=== PATIENT | male | born 1965 | race African-American/Black ===

== ENCOUNTER 2020-04-04 07:47 | Observation (INO) | payer OTHER ==
--- OUTSIDE RECORDS SUMMARY | 2020-04-04 07:50 | XMS REPORT | Clinical Summary ---
:1965 Author Organization [facility] Address [address] [place] [address] Care Team Providers Name Role Phone MD Jacob Primary Care Provider Allergies Active Allergy Reactions Severity Noted Date Comments Rosuvastatin 05/15/2017 Muscle pain Atorvastatin 05/15/2017 Muscle pain Medications Medication Sig Dispensed Refills Start Date End Date Status CHOLECALCIFEROL, VITAMIN 6,000 Units. 0 Active D3, ORAL albuterol (PROAIR Inhale 2 puffs 18 g 11 2016 Active HFA,PROVENTIL every 6 (six) HFA,VENTOLIN HFA) 90 hours as needed mcg/actuation for wheezing or inhalerIndications: RAD shortness of (reactive airway breath. disease), mild intermittent, uncomplicated buPROPion (WELLBUTRIN) 75 TK 1 T PO BID 0 01/03/2017 Active MG tablet cyclobenzaprine TK 1 T PO TID 0 01/21/2017 Active (FLEXERIL) 5 mg tablet PRN FOR MUSCLE SPASMS sxgsuaxtyx-bntftdd-nrciha as needed. 1 03/03/2017 Active ne (FIORINAL) 50-325-40 mg per capsule levothyroxine (SYNTHROID, Take 1 tablet 90 tablet 3 04/03/2017 Active LEVOXYL) 150 mcg (150 mcg total) tabletIndications: Other by mouth daily. specified hypothyroidism hydroCHLOROthiazide Take 1 tablet 90 tablet 3 04/03/2017 Active (HYDRODIURIL) 25 MG (25 mg total) tabletIndications: by mouth once Essential hypertension daily. pantoprazole (PROTONIX) Take 1 tablet 90 tablet 3 04/03/2017 Active 40 MG EC (40 mg total) tabletIndications: by mouth daily. Gastroesophageal reflux disease without esophagitis amlodipine-benazepril Take 1 capsule 90 capsule 3 04/03/2017 Active (LOTREL 5-20) 5-20 mg per by mouth daily. capsuleIndications: Essential hypertension VYVANSE 20 mg capsule TK 1 C PO QD IN 0 04/25/2017 Active THE MORNING Active Problems Problem Noted Date Attention deficit 2016 Difficulty concentrating 2016 Generalized anxiety disorder 2016 THEA on CPAP 2016 Prediabetes 2016 Benign essential HTN 2016 Mixed hyperlipidemia 2016 Acquired hypothyroidism 2016 Gastroesophageal reflux disease without esophagitis RAD (reactive airway disease) 2016 Vitamin D deficiency 2016 Obesity (BMI 30-39.9) 2016 Ventral hernia without obstruction or gangrene 017 Immunizations Name Administration Dates Next Due FLUZONE QUAD 10/05/2015, 01/06/2013, 08/24/2011 Influenza Whole 09/14/2016 TD Preservative Free 06/20/2006 Tdap 12/05/2011, 02/18/2011 Family History Medical History Relation Name Comments Hypertension Maternal Grandfather Relation Name Status Comments Maternal Grandfather Social History Tobacco Use Types Packs/Day Years Used Date Never Smoker Alcohol Use Drinks/Week oz/Week Comments Yes 3 Cans of beer Sex Assigned at Date Recorded Not on file Job Start Date Occupation Industry Not on file Not on file Not on file Travel History Travel Start Travel End No recent travel history available. 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
--- OUTSIDE RECORDS SUMMARY | 2020-04-04 07:50 | XMS REPORT | Continuity of Care Document ---
:1965 Author Organization [facility] Care Team Providers Name Role Phone [facility] Unavailable Un available Problems Problem Status Onset Classification Date Comments Sourc e Date Reported R20.2 - PARESTHESIA Active 03/17/20 [facility] OF SKIN M54.12 - 19 [place] RAD M54.12 - Active 03/05/20 [facility] RADICULOPATHY, 19 [place] and [place] Osteoarthritis of Active 05/01/20 Problem 03/18/2020 Data M H Medical knee (disorder) 11 migrated Freddieu p, from [employer] [facility] [place] on 04/23/15. Hypothyroidism Active Problem 03/18/2020 [facility] edical (disorder) Group, [facility] [place] Simple obesity Active Problem 03/18/2020 M edical (disorder) Group, [facility] [place] Gastroesophageal Active Problem 03/18/2020 Medical reflux disease Group without esophagitis (disorder) Hypertensive Active Problem 03/18/2020 Med ical disorder, systemic G roup arterial (disorder) Patient encounter Active Problem 03/18/2020 M H Medical status (finding) Freddie up Injury of tendon of Active 07/24/2019 [facility] long head of right H ealth biceps, initial encounter Medications Medication Details Route Status Patient Ordering Order Source Instructions Provider Date levothyroxine 150 mcg 150 Active (0.15 mg) oral tablet microgram = 2019 Medical 1 tab, PO, Group Daily, for thyroid, # 90 tab, 0 Refill(s), Pharmacy: [facility] #[id number] Metronidazole 500 MG 500 mg = 1 Active Oral Tablet [Flagyl] tab, PO, 2019 Me dical Q8H, X 10 Group day, # 30 tab, 0 Refill(s), Pharmacy: [facility] #[id number] Ciprofloxacin 500 MG 500 mg = 1 Active Oral Tablet [Cipro] tab, PO, 2019 Med ical Q12H, X 10 Group day, # 20 tab, 0 Refill(s), Pharmacy: [facility] #[id number] Hydrochlorothiazide 25 mg = 1 Active 25 MG Oral Tablet tab, PO, 2020 Medic al Daily, for Group blood pressure, # 90 tab, 1 Refill(s), Pharmacy: [facility] #[id number] Amlodipine 5 MG / 1 cap, PO, Active Benazepril Daily, for 2020 Medical hydrochloride 20 MG blood Grou p Oral Capsule pressure, # 90 cap, 1 Refill(s), Pharmacy: [facility] #[id number] {21 See Active (Methylprednisolone 4 Instruction 2020 Medical MG Oral Tablet s, PO, Take Group [Medrol]) } Pack by mouth as [Medrol Dosepak] directed on label., # 1 Pack, 0 Refill(s), Pharmacy: [facility] #[id number] levothyroxine 150 mcg 150 Active (0.15 mg) oral tablet microgram = 2019 Medical 1 tab, PO, Group Daily, for thyroid, # 90 tab, 3 Refill(s), Pharmacy: [facility] #[id number] Escitalopram 10 MG 10 mg = 1 Active Oral Tablet [Lexapro] tab, PO, 2019 M edical Daily, # 30 Group tab, 0 Refill(s) levothyroxine 150 mcg TK 1 T PO D Active 06/30/ [facility] tablet FOR THYROID 2019 Health naproxen 500 mg oral 500 mg = 1 Active tablet tab, PO, 2019 Medical BID, # 60 Group tab, 1 Refill(s), Pharmacy: [facility] [id number] {21 See Active (Methylprednisolone 4 Instruction 2019 Medical MG Oral Tablet s, PO, Take Group [Medrol]) } Pack by mouth as [Medrol Dosepak] directed on label., # 1 Pack, 0 Refill(s), Pharmacy: [facility] [address] pantoprazole 40 mg 40 mg = 1 Active oral enteric coated tab, PO, 2019 Med ical tablet Daily, # 90 Group tab, 3 Refill(s), Pharmacy: [facility] [id number] levothyroxine 150 mcg 150 Active (0.15 mg) oral tablet microgram = 2019 Medical 1 tab, PO, Group Daily, for thyroid, # 90 tab, 1 Refill(s), Pharmacy: [facility] [address] Hydrochlorothiazide 25 mg = 1 Active 25 MG Oral Tablet tab, PO, 2019 Medic al Daily, for Group blood pressure, # 90 tab, 1 Refill(s), Pharmacy: [facility] [address]1560 gabapentin 300 MG 300 mg = 1 Active Oral Capsule cap, PO, 2019 Medical BID, # 60 Group cap, 0 Refill(s), Pharmacy: [facility] [address] Amlodipine 5 MG / 1 cap, PO, Active Benazepril Daily, for 2019 Medical hydrochloride 20 MG blood Grou p Oral Capsule pressure, # 90 cap, 1 Refill(s), Pharmacy: [facility] [address] hydroCHLOROthiazide TK 1 T PO D Active 05/29/ [facility] 25 mg tablet FOR BLOOD 2019 Health PRESSURE amlodipine-benazepril TK ONE C PO Active 05/29/ [facility] 5-20 mg per capsule D FOR BP 2019 [facility] pantoprazole 40 mg 40 mg = 1 Active oral enteric coated tab, PO, 2019 Med ical tablet Daily, # 90 Group tab, 0 Refill(s), Pharmacy: [facility] [address] cyclobenzaprine 10 mg 10 mg = 1 Active oral tablet tab, PO, 2019 Medical Bedtime, Group PRN for spasms, do not drive or operate heavy machinery while taking, X 30 day, # 30 tab, 0 Refill(s), Pharmacy: [facility] [address] levothyroxine 150 mcg 150 Active (0.15 mg) oral tablet microgram = 2019 Medical 1 tab, PO, Group Daily, # 90 tab, 1 Refill(s), Pharmacy: [facility] [id number] Hydrochlorothiazide 25 mg = 1 Active 25 MG Oral Tablet tab, PO, 2019 Medic al Daily, # 90 Group tab, 1 Refill(s), Pharmacy: [facility] [address]753 Amlodipine 5 MG / 1 cap, PO, Active Benazepril Daily, # 90 2019 Medical hydrochloride 20 MG cap, 1 Grou p Oral Capsule Refill(s), Pharmacy: [facility] [address]191 0.5 ML Varicella 0.5 mL, IM, Active zoster virus ONCE, 2019 Medical glycoprotein E, repeat dose Grou p recombinant 0.1 MG/ML in 2 to 6 Injection [Shingrix] months, # 1 mL, 1 Refill(s), Pharmacy: [facility] [address] Betamethasone 0.5 1 appl, Active MG/ML / Clotrimazole TOP, BID, 2019 M edical 10 MG/ML Topical PRN Apply Group Cream to affected areas, X 14 day, # 45 gm, 1 Refill(s), Pharmacy: [facility] [address] levothyroxine 150 mcg 150 No (0.15 mg) oral tablet microgram = Longer 2018 Medical 1 tab, PO, Active Group Daily, # 90 tab, 1 Refill(s), Pharmacy: [facility] [address] levothyroxine 150 mcg 150 No (0.15 mg) oral tablet microgram = Longer 2017 Medical 1 tab, PO, Active Group Daily, # 30 tab, 0 Refill(s) Amlodipine 5 MG / 1 cap, PO, No Benazepril Daily, # 30 Longer 2018 Medical hydrochloride 20 MG cap, 0 Active Grou p Oral Capsule Refill(s) Hydrochlorothiazide 25 mg = 1 No 25 MG Oral Tablet tab, PO, Longer 2018 Medic al Daily, # 30 Active Group tab, 0 Refill(s) pantoprazole 40 mg 40 mg = 1 No oral enteric coated tab, PO, Longer 2018 Med ical tablet Daily, # 30 Active Group tab, 0 Refill(s) Amphetamine aspartate 10 mg = 1 No 2.5 MG / Amphetamine tab, PO, Longer 2018 Me dical Sulfate 2.5 MG / QAM, # 60 Active Group Dextroamphetamine tab, 0 saccharate 2.5 MG / Refill(s) Dextroamphetamine Sulfate 2.5 MG Oral Tablet [Adderall] Vitamin D3 0 Refill(s) Active 2017 Medical Group pantoprazole Protonix 40 Active 05/10/ [facility] (PROTONIX) 40 mg EC mg 2016 tablet tablet,julien yed release Take 1 tablet every day by oral route. dextroamphetamine-amp Adderall 10 Active [facility] hetamine (ADDERALL) mg tablet He alth 10 mg tablet Take 1 tablet every day by oral route. Allergies, Adverse Reactions, Alerts Substance Category Reaction Severity Reaction Status Date Comments S ource type Reported No Known Assertion Drug Medication allergy Medic al Allergies Group Immunizations Immunization Date Given Site Status Last Comments Source Updated influenza virus 10/25/2018 completed [facility] vaccine, live, Group , trivalent [facility] [place] Results No Data Provided for This Section Pathology Reports No Data Provided for This Section Diagnostic Reports Report Value Date Source Spine cervical 2 or 3 CERVICAL SPINE, 3 VIEWS 03/05/2019 [facility] [place] view DX HISTORY: ; - m54.12 acute cervical radiculopath y; COMPARISON: None available. FINDINGS: Frontal, lateral, and odontoid views submitted. There is very mild chronic d epression of the superior endplate of the C5 vertebral body anteriorly which may be degenerative or may be related to old healed fracture. A small 4 mm chronic osseous fragment at the anterior superior corner of the C5 vertebral body may represent limbus vertebra or chronic nonunion fracture fragment. Vertebral body heights are o therwise maintained. The disc space heights are grossly preserved. There is no spondylolisthesis. There is no prevertebral soft tissue swelling. IMPRESSION: 1. Chronic findings at C5 as described with may be congenital, degenerative, and/or posttraumatic. 2. Otherwise negative. SL: [id number] Consultation Notes No Data Provided for This Section Discharge Summaries No Data Provided for This Section History and Physicals No Data Provided for This Section Vital Signs Vital Sign Value Date Comments Source Systolic (mm Hg) 122 01/07/2020 Medical Group Diastolic (mm Hg) 77 01/07/2020 Medical Group Heart Rate 76 01/07/2020 Medical Grou p Temperature Oral (F) 98.0 F 01/07/2020 Medi jadon Group Height 185.42 cm 01/07/2020 Medical Grou p Weight 124.773 01/07/2020 Medical Grou p BMI Calculated 36.29 01/07/2020 Medical Gr oup Systolic (mm Hg) 141 12/01/2019 Medical Group Diastolic (mm Hg) 90 12/01/2019 Medical Group Heart Rate 65 12/01/2019 Medical Grou p Temperature Oral (F) 98.7 F 12/01/2019 Medi jadon Group Height 184.15 cm 12/01/2019 Medical Grou p Weight 125.938 12/01/2019 Medical Grou p BMI Calculated 37.14 12/01/2019 Medical Gr oup Systolic (mm Hg) 130 08/12/2019 Medical Group Diastolic (mm Hg) 85 08/12/2019 Medical Group Heart Rate 57 08/12/2019 Medical Grou p Height 185.42 cm 08/12/2019 Medical Grou p Weight 119.773 08/12/2019 Medical Grou p BMI Calculated 34.84 08/12/2019 Medical Gr oup Systolic (mm Hg) 130 07/15/2019 [facility] Health Diastolic (mm Hg) 72 07/15/2019 [facility] Healt h Heart Rate 68 07/15/2019 [facility] Health Temperature Oral (F) 37.44 Jeri 07/15/2019 [facility] He alth Height 185.4 cm 07/15/2019 [facility] Health Weight 102.785 07/15/2019 [facility] Health BMI Calculated 35.3 05/29/2019 Medical Gr oup Weight 121.364 05/29/2019 Medical Grou p Height 185.42 cm 05/29/2019 Medical Grou p Heart Rate 53 05/29/2019 Medical Grou p Systolic (mm Hg) 138 05/29/2019 Medical Group Diastolic (mm Hg) 88 05/29/2019 Medical Group Temperature Oral (F) 98.0 F 05/29/2019 Medi jadon Group BMI Calculated 35.04 03/05/2019 Medical Gr oup Weight 120.455 03/05/2019 Medical Grou p Height 185.42 cm 03/05/2019 Medical Grou p Temperature Oral (F) 98.2 F 03/05/2019 Medi jadon Group Heart Rate 70 03/05/2019 Medical Grou p Systolic (mm Hg) 129 03/05/2019 Medical Group Diastolic (mm Hg) 88 03/05/2019 Medical Group BMI Calculated 35.64 02/11/2019 Medical Gr oup Systolic (mm Hg) 134 02/11/2019 Medical Group Diastolic (mm Hg) 84 02/11/2019 Medical Group Heart Rate 65 02/11/2019 Medical Grou p Height 185.42 cm 02/11/2019 Medical Grou p Weight 122.528 02/11/2019 Medical Grou p BMI Calculated 35.74 02/09/2019 Medical Gr oup Weight 122.869 02/09/2019 Medical Grou p Height 185.42 cm 02/09/2019 Medical Grou p Systolic (mm Hg) 133 02/09/2019 Medical Group Diastolic (mm Hg) 88 02/09/2019 Medical Group Temperature Oral (F) 98.2 F 02/09/2019 Medi jadon Group Respitory Rate 18 02/09/2019 Medical Gr oup Heart Rate 66 02/09/2019 Medical Grou p BMI Calculated 34.24 10/27/2018 Medical Gr oup Heart Rate 62 10/27/2018 Medical Grou p Weight 117.727 10/27/2018 Medical Grou p Height 185.42 cm 10/27/2018 Medical Grou p Systolic (mm Hg) 129 10/27/2018 Medical Group Diastolic (mm Hg) 77 10/27/2018 Medical Group Encounters Location Location Encounter Encounter Reason Attending ADM DC Stat us Source Details Type Number For Provider Date Date Visit Outpatient [id number] EDWARD 10/27 [facility] Outpatient [id number] Edward 10/27 10/28 M H Primary 0 [facility] Medic al [facility] Outpatient [id number] ADDISON HAAS 01/12 Act [facility] Ambulatory [id number] Addison Haas 01/12 01/12 Primary Pre-Reg 2 Jr Medical Care [facility] Outpatient [id number] EDWARD 01/28 Active [facility] 1 [facility] [place] [facility] [id number] AKUVI ELHOR 02/09 [facility] 3 [facility] Outpatient [id number] Akuvi Elhor 02/09 02/10 Primary 3 [facility] Outpatient [id number] EDWARD 02/11 Active [facility] 4 [facility] Outpatient [id number] Akuvi Elhor 02/11 02/12 MH Primary 4 Medical Care Group [facility] Outpatient [id number] Akuvi Elhor 03/04 [facility] 6 [facility] Ambulatory [id number] Akuvi Elhor 03/04 03/04 MH Primary Pre-Reg 6 Medical Care Group [facility] Outpatient [id number] Akuvi Elhor 03/05 [facility] Outpatient [id number] Akuvi Elhor 03/05 03/06 MH Primary 7 Medical Care Group [facility] Outpt Diag [id number] Akuvi Elhor 03/05 03/06 MH [facility] Outpatient Services 0 [facility] Between [id number] 03/16 03/17 MH Primary Visit Medical Care Group [facility] Between [id number] 04/23 04/24 MH Primary Visit Medical Care Group [facility] Phone [id number] 04/23 04/25 MH Primary Message Medical Care [facility] Between [id number] 05/01 05/02 MH Primary Visit Medical Care Group [facility] Outpatient [id number] Addison Haas 05/29 [facility] 8 [place] [facility] Outpatient [id number] Akuvi Elhor 05/29 05/30 MH Primary 8 Medical Care Group [facility] Health Office [id number] Blair 07/15 07/15 [facility] B Orthopaedic Visit [facility] Orders Only [id number] No Doctor 07/17 [facility] Unass Health [facility] Health Telephone [id number] Blair 07/24 [facility] Orthopaedic Charles GARC[facility] Outpatient [id number] Edward 08/12 Active [facility] 5 [facility] Outpatient [id number] Edward 08/12 08/13 M H Primary 5 Nicklas II /2018 Medic al Care Group [place] [facility] Between [id number] 08/13 08/14 MH Primary Visit Medical Care Upper [facility] Outpatient [id number] Akuvi Elhor 12/01 [facility] [place] [facility] Outpatient [id number] Akuvi Elhor 12/01 12/02 [facility] [id number] 12/02 12/03 [facility] [id number] 12/08 12/09 [facility] [id number] Akuvi Elhor 01/07 [facility] [id number] Akuvi Elhor 01/07 01/08 [facility] [id number] 01/07 01/08 MH Primary Visit Medical Care [facility] Outpatient [id number] Ed02/09 Active [facility] 9 [facility] Outpatient [id number] Addison Haas 03/15 [facility] [id number] Addison Haas 03/15 03/15 MH Primary Pre-Reg 2 Medical Care [facility] Phone [id number] 03/15 03/17 MH Primary Message Medical Care [facility] Between [id number] 03/15 03/16 MH Primary Visit Medical Care Upper [facility] MG Between [id number] 03/15 03/16 MH Primary Visit Medical Care [facility] Outpatient [id number] Ed03/16 Active [facility] 3 [facility] Outpatient [id number] Ed03/16 M H Primary 3 Nicklas /2019 Medic al Care Upper Group [facility] Procedures Procedure Code Date Perfomer Comments Source WORKERS [id number] 07/17/2019 Doctor [facility] Health COMPENSATION Unassigned Colonoscopy<sup>1< [id number] 11/25/2016 done at [facility] ical /sup> Jessica Joseph, JOVANI Sharpe and Azam was normal Arthroscopy of [id number] 11/25/1987 Medical knee Group History of [id number] 11/25/1987 Medical shoulder surgery Group Appendectomy [id number] Medical Group, JOVANI Nascimento Entire nasal sinus [id number] Med ical Group, JOVANI Nascimento Assessment and Plan No Data Provided for This Section Plan of Care Plan of Care Date Source INFLUENZA VACCINE (#1) 2019 [facility] MR SHOULDER RIGHT WO CONTRAST 07/24/2019 [facility] IMAGING Routine Injury of tendon of long head of right biceps, initial encou nter Expected: 07/24/2019, Expires: 07/24/2020 COLONOSCOPY 2016 [facility] DTaP,Tdap,and Td Vaccines (1 - 1985 [facility] Tdap) Social History Social History Date Source Social History TypeResponse 03/16/2020 Medical G roup Alcohol Never Substance Abuse Use: None. Smoking Status Never smoker; Exposure to Tobacco Smoke None; Cigarette Smoking Last 365 Days No; Reg Smoking Cessation Counseling No entered on: 03/16/20 Tobacco UseTypesPacks/DayYears UsedDate 07/30/2019 [facility] Never Assessed Sex Assigned at BirthDate Recorded Not on file Job Start DateOccupationIndustry Not on file Not on file Not on file Travel HistoryTravel StartTravel End No recent travel history available. documented as of this encounter Social History TypeResponse 03/05/2019 JOVANI [email or web address] Smoking Status Never smoker; Exposure to Tobacco Smoke None; Cigarette Smoking Last 365 Days No; Reg Smoking Cessation Counseling No entered on: 03/05/19 Family History No Data Provided for This Section Advance Directives No Data Provided for This Section Functional Status No Data Provided for This Section
--- OUTSIDE RECORDS SUMMARY | 2020-04-04 07:51 | XMS REPORT | Summary of Care ---
:1965 Author Organization [facility] Primary Care [facility] Address [address] [place] [address], [address] [place] [address]- Encounter HQ Encntr_alias(FIN) [id number] Date(s): 03/16/19 - 03/17/19 [facility] Care [facility] [address] [facility] [address] [place], [place] [address]- [phone] Vital Signs No data available for this section Problem List Condition Effective Dates Status Health Status Informant Other specified Active hypothyroidism(Confirmed) Osteoarthritis of knee1 05/01/11 Active Simple obesity(Confirmed) Active 1Data migrated from [employer] on 04/23/15. Allergies, Adverse Reactions, Alerts Substance Reaction Severity Status NKDA Active Medications No data available for this section Results No data available for this section Immunizations Given and Recorded Vaccine Date Status Refusal Reason influenza virus vaccine, live, trivalent 10/25/18 Recorde d Procedures Procedure Date Related Diagnosis Body Site Status Colonoscopy2016 Completed Appendectomy Completed Entire nasal sinus Completed 1done at [facility] and was normal Social History Social History Type Response Smoking Status Never smoker; Exposure to To bacco Smoke None; Cigarette Smoking Last 365 Days No; Reg Smoking Cessation Counseling No entered on: 03/05/19 Assessment and Plan No data available for this section
--- OUTSIDE RECORDS SUMMARY | 2020-04-04 07:51 | XMS REPORT | Summary of Care ---
:1965 Author Organization [facility] Primary Care [facility] Address [address] [place] [address]- Encounter HQ Encntr_óscar(FIN) [id number] Date(s): 03/15/20 - 03/16/20 [facility] Primary Care [facility] [address] [place] [address]- [phone] Vital Signs No data available for this section Problem List Condition Effective Dates Status Health Status Informant GERD without esophagitis(Confirmed) Active Hypertension(Confirmed) Active Other specified Active hypothyroidism(Confirmed) Osteoarthritis of knee1 05/01/11 Active Depression screening(Confirmed) Active Simple obesity(Confirmed) Active 1Data migrated from [employer] on 04/23/15. Allergies, Adverse Reactions, Alerts No Known Medication Allergies Medications levothyroxine 150 mcg (0.15 mg) oral tablet 150 microgram = 1 tab, PO, Daily, for thyroid, # 90 tab, 0 Refill(s), Pharmacy: [id number] Start Date: 03/15/20 Stop Date: 06/13/20 Status: Ordered Results No data available for this section Immunizations Given and Recorded Vaccine Date Status Refusal Reason influenza virus vaccine, live, trivalent 10/25/18 Recorde d Procedures Procedure Date Related Diagnosis Body Site Status 2016 Completed Arthroscopy of knee 11/25/87 Complete d History of shoulder surgery 11/25/87 Completed Appendectomy Completed Entire nasal sinus Completed 1done at [facility] and was normal Social History Social History Type Response Alcohol Never Substance Abuse Use: None. Smoking Status Never smoker; Exposure to To bacco Smoke None; Cigarette Smoking Last 365 Days No; Reg Smoking Cessation Counseling No entered on: 03/16/20 Assessment and Plan No data available for this section
--- OUTSIDE RECORDS SUMMARY | 2020-04-04 07:51 | XMS REPORT | Summary of Care ---
:1965 Author Organization [facility] Primary Care [facility] Address [address], [address] [place] [address]- Encounter HQ Pavelntr_óscar(FIN) [id number] Date(s): 03/04/19 - 03/04/19 [facility] Care [facility] [address] [place] [address]- [phone] Attending Physician: Antonio Dumont MSN, RN, BACK TACKER-C Vital Signs No data available for this section Problem List Condition Effective Dates Status Health Status Informant Other specified Active hypothyroidism(Confirmed) Osteoarthritis of knee1 05/01/11 Active Simple obesity(Confirmed) Active 1Data migrated from [employer] on 04/23/15. Allergies, Adverse Reactions, Alerts Substance Reaction Severity Status NKDA Active Medications No data available for this section Results No data available for this section Immunizations Given and Recorded Vaccine Date Status Refusal Reason influenza virus vaccine, live, trivalent 10/25/18 Recorde d Procedures Procedure Date Related Diagnosis Body Site Status Colonoscopy2016 Completed Appendectomy Completed Entire nasal sinus Completed 1done at [facility] and was normal Social History Social History Type Response Smoking Status Never smoker; Exposure to To bacco Smoke None; Cigarette Smoking Last 365 Days No; Reg Smoking Cessation Counseling No entered on: 03/05/19 Assessment and Plan No data available for this section
--- OUTSIDE RECORDS SUMMARY | 2020-04-04 07:51 | XMS REPORT | Summary of Care ---
:1965 Author Organization [facility] Primary Care [facility] Address [address] [place] [address], [address] [address]- Encounter HQ Encntr_alias(FIN) [id number] Date(s): 01/12/19 - 01/12/19 [facility] [address], [address] [address] [phone] Attending Physician: Matthew Sher MD Vital Signs No data available for this section Problem List Condition Effective Dates Status Health Status Informant Other specified Active hypothyroidism(Confirmed) Osteoarthritis of knee1 05/01/11 Active Simple obesity(Confirmed) Active 1Data migrated from [employer] on 04/23/15. Allergies, Adverse Reactions, Alerts Substance Reaction Severity Status NKDA Active Medications No data available for this section Results No data available for this section Immunizations No data available for this section Procedures Procedure Date Related Diagnosis Body Site Status Appendectomy Completed Entire nasal sinus Completed Social History Social History Type Response Smoking Status Never smoker; Exposure to To bacco Smoke None; Cigarette Smoking Last 365 Days No; Reg Smoking Cessation Counseling No entered on: 10/27/18 Assessment and Plan No data available for this section
--- OUTSIDE RECORDS SUMMARY | 2020-04-04 07:51 | XMS REPORT | Summary of Care ---
:1965 Author Organization [facility] Primary Care [facility] Address [address] [place] [address]- Encounter HQ Encntr_alias(FIN) [id number] Date(s): 12/08/19 - 12/09/19 [facility] Primary Care [facility] [address] [place], [place] [address]- [phone] Vital Signs No data available for this section Problem List Condition Effective Dates Status Health Status Informant GERD without esophagitis(Confirmed) Active Hypertension(Confirmed) Active Other specified Active hypothyroidism(Confirmed) Osteoarthritis of knee1 05/01/11 Active Simple obesity(Confirmed) Active 1Data migrated from [email or web address] on 04/23/15. Allergies, Adverse Reactions, Alerts No Known Medication Allergies Medications No data available for this section Results No data available for this section Immunizations Given and Recorded Vaccine Date Status Refusal Reason influenza virus vaccine, live, trivalent 10/25/18 Recorde d Procedures Procedure Date Related Diagnosis Body Site Status Colonoscopy2016 Completed Appendectomy Completed Entire nasal sinus Completed 1done at [facility] and was normal Social History Social History Type Response Smoking Status Never smoker; Exposure to To bacco Smoke None; Cigarette Smoking Last 365 Days No; Reg Smoking Cessation Counseling No entered on: 12/01/19 Assessment and Plan No data available for this section
--- OUTSIDE RECORDS SUMMARY | 2020-04-04 07:51 | XMS REPORT | Summary of Care ---
:1965 Author Organization [facility] Primary Care [facility] Address [address] [place] [address], [address] [place] [address]- Encounter HQ Encntr_alias(FIN) [id number] Date(s): 04/23/19 - 04/24/19 [facility] Primary Care [facility] [address] [place], [place] [address]- [phone] Vital Signs No data available for this section Problem List Condition Effective Dates Status Health Status Informant Other specified Active hypothyroidism(Confirmed) Osteoarthritis of knee1 05/01/11 Active Simple obesity(Confirmed) Active 1Data migrated from [employer] on 04/23/15. Allergies, Adverse Reactions, Alerts No Known Medication Allergies Medications pantoprazole 40 mg oral enteric coated tablet 40 mg = 1 tab, PO, Daily, # 90 tab, 0 Refill(s), Pharmacy: [id number] Start Date: 04/23/19 Status: Ordered Results No data available for [...]
--- OUTSIDE RECORDS SUMMARY | 2020-04-04 07:51 | XMS REPORT | Summary of Care ---
:1965 Author Organization [facility] Primary Care [facility] Address [address] [place] [address]- Encounter HQ Encntr_óscar(FIN) [id number] Date(s): 03/16/20 - 03/16/20 [facility] Primary Care [facility] [address] [place] [address]- [phone] Discharge Disposition: Home or Self Care Attending Physician: Victor M Lin MD Vital Signs No data available for this section Problem List Condition Effective Dates Status Health Status Informant GERD without esophagitis(Confirmed) Active Hypertension(Confirmed) Active Other specified Active hypothyroidism(Confirmed) Osteoarthritis of knee1 05/01/11 Active Depression screening(Confirmed) Active Simple obesity(Confirmed) Active 1Data migrated from [employer] on 04/23/15. Allergies, Adverse Reactions, Alerts No Known Medication Allergies Medications No Known Medications Results No data available for this section Immunizations Given and Recorded Vaccine Date Status Refusal Reason influenza virus vaccine, live, trivalent 10/25/18 Recorde d Procedures Procedure Date Related Diagnosis Body Site Status Colonoscopy2016 Completed Arthroscopy of knee 11/25/87 Complete d History of shoulder surgery 11/25/87 Completed Appendectomy Completed Entire nasal sinus Completed 1done at [facility] and was normal Social History Social History Type Response Alcohol Never Substance Abuse Use: None. Smoking Status Never smoker; Exposure to To bacco Smoke None; Cigarette Smoking Last 365 Days No; Reg Smoking Cessation Counseling No entered on: 03/16/20 Assessment and Plan No data available for this section
--- OUTSIDE RECORDS SUMMARY | 2020-04-04 07:51 | XMS REPORT | Summary of Care ---
:1965 Author Organization [facility] Primary Care [facility] Address [address], [address] [place] [address]- Encounter HQ Encntr_alias(FIN) [id number] Date(s): 04/23/19 - 04/24/19 [facility] Care [facility] [address] [place], [place] [address]- [phone] Vital Signs No data available for this section Problem List Condition Effective Dates Status Health Status Informant Other specified Active hypothyroidism(Confirmed) Osteoarthritis of knee1 05/01/11 Active Simple obesity(Confirmed) Active 1Data migrated from [employer] [facility] on 04/23/15. Allergies, Adverse Reactions, Alerts No Known Medication Allergies Medications No data available for this section Results No data available for this section Immunizations Given and Recorded Vaccine Date Status Refusal Reason influenza virus vaccine, live, trivalent 10/25/18 Recorde d Procedures Procedure Date Related Diagnosis Body Site Status Colonoscopy2016 Completed Appendectomy Completed Entire nasal sinus Completed 1done at [facility] and was normal Social History Social History Type Response Smoking Status Never smoker; Exposure to To bacco Smoke None; Cigarette Smoking Last 365 Days No; Reg Smoking Cessation Counseling No entered on: 03/05/19 Assessment and Plan No data available for this section
--- OUTSIDE RECORDS SUMMARY | 2020-04-04 07:51 | XMS REPORT | Summary of Care ---
:1965 Author Organization [facility] Primary Care [place] Address [address] [place] [address]- Encounter HQ Monica_óscar(ZAC) [id number] Date(s): 08/12/19 - 08/12/19 [facility] Primary Care [place] [address] [place] [address]- [phone] Discharge Disposition: Home or Self Care Attending Physician: Victor M Lin MD Vital Signs Most recent to oldest [Reference Range]: 1 Height 185.42 cm (08/12/19 1:08 PM) Blood Pressure [90-140/60-90 mmHg] 130/85 mmHg (08/12/19 1:08 PM) Peripheral Pulse Rate [60-100 bpm] 57 bpm *LOW* (08/12/19 1:08 PM) Weight 119.773 kg (08/12/19 1:08 PM) Body Mass Index 34.84 m2 (08/12/19 1:08 PM) Problem List Condition Effective Dates Status Health Status Informant GERD without esophagitis(Confirmed) Active Hypertension(Confirmed) Active Other specified Active hypothyroidism(Confirmed) Osteoarthritis of knee1 05/01/11 Active Simple obesity(Confirmed) Active 1Data migrated from [employer] on 04/23/15. Allergies, Adverse Reactions, Alerts No Known Medication Allergies Medications levothyroxine 150 mcg (0.15 mg) oral tablet 150 microgram = 1 tab, PO, Daily, for thyroid, # 90 tab, 3 Refill(s), Pharmacy: [id number] Start Date: 08/13/19 Status: OrderedLexapro 10 mg oral tablet 10 mg = 1 tab, PO, Daily, # 30 tab, 0 Refill(s) Start Date: 08/12/19 Status: Ordered Results No data available for this section Immunizations Given and Recorded Vaccine Date Status Refusal Reason influenza virus vaccine, live, trivalent 10/25/18 Recorde d Procedures Procedure Date Related Diagnosis Body Site Status Colonoscopy2016 Completed Appendectomy Completed Entire nasal sinus Completed 1done at [facility] and was normal Social History Social History Type Response Smoking Status Never smoker; Exposure to To bacco Smoke None; Cigarette Smoking Last 365 Days No; Reg Smoking Cessation Counseling No entered on: 08/12/19 Assessment and Plan No data available for this section
--- OUTSIDE RECORDS SUMMARY | 2020-04-04 07:51 | XMS REPORT | Summary of Care ---
:1965 Author Organization [facility] Primary Care [facility] Address [address] [place] [address]- Encounter HQ Monica_óscar(FIN) [id number] Date(s): 05/29/19 - 05/29/19 [facility] Primary Care [facility] [address] [place], [place] [address]- [phone] Discharge Disposition: Home or Self Care Attending Physician: Antonio Dumont MSN, RN, COMMUNITY SERVICE TECHNICIAN-C Vital Signs Most recent to oldest [Reference Range]: 1 Height 185.42 cm (05/29/19 9:13 AM) Temperature Oral [96.4-99.1 DegF] 98.0 DegF (05/29/19 9:13 AM) Blood Pressure [90-140/60-90 mmHg] 138/88 mmHg (05/29/19 9:13 AM) Peripheral Pulse Rate [60-100 bpm] 53 bpm *LOW* (05/29/19 9:13 AM) Weight 121.364 kg (05/29/19 9:13 AM) Body Mass Index 35.3 m2 (05/29/19 9:13 AM) Problem List Condition Effective Dates Status Health Status Informant GERD without esophagitis(Confirmed) Active Hypertension(Confirmed) Active Other specified Active hypothyroidism(Confirmed) Osteoarthritis of knee1 05/01/11 Active Simple obesity(Confirmed) Active 1Data migrated from [facility] on 04/23/15. Allergies, Adverse Reactions, Alerts No Known Medication Allergies Medications amLODIPine-benazepril 5 mg-20 mg oral capsule 1 cap, PO, Daily, for blood pressure, # 90 cap, 1 Refill(s), Pharmacy: [facility] [id number] Start Date: 05/29/19 Status: Orderedgabapentin 300 mg oral capsule 300 mg = 1 cap, PO, BID, # 60 cap, 0 Refill(s), Pharmacy: [address] [id number] Start Date: 05/29/19 Stop Date: 06/28/19 Status: Orderedhydrochlorothiazide 25 mg oral tablet 25 mg = 1 tab, PO, Daily, for blood pressure, # 90 tab, 1 Refill(s), Pharmacy: [address] [id number] Start Date: 05/29/19 Status: Orderedlevothyroxine 150 mcg (0.15 mg) oral tablet 150 microgram = 1 tab, PO, Daily, for thyroid, # 90 tab, 1 Refill(s), [facility]acy: [facility] Start Date: 05/29/19 Status: OrderedMedrol Dosepak 4 mg oral tablet See Instructions, PO, Take by mouth as directed on label., # 1 Pack, 0 Refill(s), Pharmacy: [facility] [id number] Start Date: 05/29/19 Stop Date: 06/04/19 Status: Orderednaproxen 500 mg oral tablet 500 mg = 1 tab, PO, BID, # 60 tab, 1 Refill(s), Pharmacy: [facility] [id number] Start Date: 05/29/19 Stop Date: 06/30/19 Status: Orderedpantoprazole 40 mg oral enteric coated tablet 40 mg = 1 tab, PO, Daily, # 90 tab, 3 Refill(s), Pharmacy: [facility] [id number] Start Date: 05/29/19 Status: Ordered Results No data available for this section Immunizations Given and Recorded Vaccine Date Status Refusal Reason influenza virus vaccine, live, trivalent 10/25/18 Recorde d Procedures Procedure Date Related Diagnosis Body Site Status Colonoscopy2016 Completed Appendectomy Completed Entire nasal sinus Completed 1done at [facility] and was normal Social History Social History Type Response Smoking Status Never smoker; Exposure to To bacco Smoke None; Cigarette Smoking Last 365 Days No; Reg Smoking Cessation Counseling No entered on: 05/29/19 Assessment and Plan No data available for this section
--- OUTSIDE RECORDS SUMMARY | 2020-04-04 07:51 | XMS REPORT | Summary of Care ---
:1965 Author Organization [facility] Primary Care [facility] Address [address] [place] [address], [address] [place] [address]- Encounter HQ Encntr_alias(FIN) [id number] Date(s): 05/01/19 - 05/02/19 [facility] Care [facility] [address] [place], [place] [address]- [phone] Vital Signs No data available for this section Problem List Condition Effective Dates Status Health Status Informant Other specified Active hypothyroidism(Confirmed) Osteoarthritis of knee1 05/01/11 Active Simple obesity(Confirmed) Active 1Data migrated from [facility] on 04/23/15. Allergies, Adverse Reactions, Alerts No Known Medication Allergies Medications No data available for this section Results No data available for this section Immunizations Given and Recorded Vaccine Date Status Refusal Reason influenza virus vaccine, live, trivalent 10/25/18 Recorde d Procedures Procedure Date Related Diagnosis Body Site Status Colonoscopy2016 Completed Appendectomy Completed Entire nasal sinus Completed 1done at [facility] and was normal Social History Social History Type Response Smoking Status Never smoker; Exposure to To bacco Smoke None; Cigarette Smoking Last 365 Days No; Reg Smoking Cessation Counseling No entered on: 03/05/19 Assessment and Plan No data available for this section
--- OUTSIDE RECORDS SUMMARY | 2020-04-04 07:51 | XMS REPORT | Summary of Care ---
:1965 Author Organization [facility] Primary Care [place] Address [address] [place] [address]- Encounter HQ Encntr_alijefferson(FIN) [id number] Date(s): 01/07/20 - 01/08/20 [facility] Care [place] [address] [place] [address] [phone] Vital Signs No data available for this section Problem List Condition Effective Dates Status Health Status Informant GERD without esophagitis(Confirmed) Active Hypertension(Confirmed) Active Other specified Active hypothyroidism(Confirmed) Osteoarthritis of knee1 05/01/11 Active Simple obesity(Confirmed) Active 1Data migrated from [employer] on 04/23/15. Allergies, Adverse Reactions, Alerts No Known Medication Allergies Medications No data available for this section Results No data available for this section Immunizations Given and Recorded Vaccine Date Status Refusal Reason influenza virus vaccine, live, trivalent 10/25/18 Recorde d Procedures Procedure Date Related Diagnosis Body Site Status Colonoscopy2016 Completed Appendectomy Completed Entire nasal sinus Completed 1done at [facility] and was normal Social History Social History Type Response Smoking Status Never smoker; Exposure to To bacco Smoke None; Cigarette Smoking Last 365 Days No; Reg Smoking Cessation Counseling No entered on: 01/07/20 Assessment and Plan No data available for this section
--- OUTSIDE RECORDS SUMMARY | 2020-04-04 07:51 | XMS REPORT | Summary of Care ---
:1965 Author Organization [facility] Primary Care [facility] Address [address] [place] [address]- Encounter HQ Encntr_alias(FIN) [id number] Date(s): 08/13/19 - 08/14/19 [facility] Primary Care [facility] [address] [place] [address] [phone] Vital Signs No data available for this section Problem List Condition Effective Dates Status Health Status Informant GERD without esophagitis(Confirmed) Active Hypertension(Confirmed) Active Other specified Active hypothyroidism(Confirmed) Osteoarthritis of knee1 05/01/11 Active Simple obesity(Confirmed) Active 1Data migrated from [employer] on 04/23/15. Allergies, Adverse Reactions, Alerts No Known Medication Allergies Medications No data available for this section Results No data available for this section Immunizations Given and Recorded Vaccine Date Status Refusal Reason influenza virus vaccine, live, trivalent 10/25/18 Recorde d Procedures Procedure Date Related Diagnosis Body Site Status Colonoscopy2016 Completed Appendectomy Completed Entire nasal sinus Completed 1done at [facility] and was normal Social History Social History Type Response Smoking Status Never smoker; Exposure to To bacco Smoke None; Cigarette Smoking Last 365 Days No; Reg Smoking Cessation Counseling No entered on: 08/12/19 Assessment and Plan No data available for this section
--- OUTSIDE RECORDS SUMMARY | 2020-04-04 07:51 | XMS REPORT | Summary of Care ---
:[address] [facility] Primary Care [place] Address [address] [place] [address]- Encounter HQ Monica_óscar(FIN) [id number] Date(s): 01/07/20 - 01/07/20 [facility] Primary Care [place] [address] [place] [address]- [phone] Discharge Disposition: Home or Self Care Attending Physician: Antonio Dumont MSN, RN, HEAD SHIPPER-C Vital Signs Most recent to oldest [Reference Range]: 1 Height 185.42 cm (01/07/20 11:13 AM) Temperature Oral [96.4-99.1 DegF] 98.0 DegF (01/07/20 11:13 AM) Blood Pressure [90-140/60-90 mmHg] 122/77 mmHg (01/07/20 11:13 AM) Peripheral Pulse Rate [60-100 bpm] 76 bpm (01/07/20 11:13 AM) Weight 124.773 kg (01/07/20 11:13 AM) Body Mass Index 36.29 m2 (01/07/20 11:13 AM) Problem List Condition Effective Dates Status Health Status Informant GERD without esophagitis(Confirmed) Active Hypertension(Confirmed) Active Other specified Active hypothyroidism(Confirmed) Osteoarthritis of knee1 05/01/11 Active Simple obesity(Confirmed) Active 1Data migrated from [facility] on 04/23/15. Allergies, Adverse Reactions, Alerts No Known Medication Allergies Medications Cipro 500 mg oral tablet 500 mg = 1 tab, PO, Q12H, X 10 day, # 20 tab, 0 Refill(s), Pharmacy: [facility] #[id number] Start Date: 01/07/20 Stop Date: 01/17/20 Status: OrderedFlagyl 500 mg oral tablet 500 mg = 1 tab, PO, Q8H, X 10 day, # 30 tab, 0 Refill(s), [id number] Start Date: 01/07/20 Stop Date: 01/17/20 Status: Ordered Results No data available for [...]
--- OUTSIDE RECORDS SUMMARY | 2020-04-04 07:52 | XMS REPORT | Summary of Care ---
:1965 Author Organization [facility] Primary Care [facility] Address [address], [address] [place] [address]- Encounter HQ Yakelin(FIN) [phone] Date(s): 02/11/19 - 02/11/19 [facility] Care [facility] [address] [place], [place] [address]- [phone] Discharge Disposition: Home or Self Care Attending Physician: Antonio Dumont MSN, RN, SENIOR PROFESSIONAL SERVICES CONSULTANT-C Vital Signs Most recent to oldest [Reference Range]: 1 Height 185.42 cm (02/11/19 11:23 AM) Blood Pressure [90-140/60-90 mmHg] 134/84 mmHg (02/11/19 11:23 AM) Peripheral Pulse Rate [60-100 bpm] 65 bpm (02/11/19 11:23 AM) Weight 122.528 kg (02/11/19 11:23 AM) Body Mass Index 35.64 m2 (02/11/19 11:23 AM) Problem List Condition Effective Dates Status Health Status Informant Other specified Active hypothyroidism(Confirmed) Osteoarthritis of knee1 05/01/11 Active Simple obesity(Confirmed) Active 1Data migrated from [employer] on 04/23/15. Allergies, Adverse Reactions, Alerts Substance Reaction Severity Status NKDA Active Medications levothyroxine 150 mcg (0.15 mg) oral tablet 150 microgram = 1 tab, PO, Daily, # 90 tab, 1 Refill(s), Pharmacy: [facility] [id number] Start Date: 02/11/19 Status: Ordered Results No data available for this section Immunizations Given and Recorded Vaccine Date Status Refusal Reason influenza virus vaccine, live, trivalent 12/1/18 Recorde d Procedures Procedure Date Related Diagnosis Body Site Status Colonoscopy1 2016 Completed Appendectomy Completed Entire nasal sinus Completed 1done at [facility] and was normal Social History Social History Type Response Smoking Status Never smoker; Exposure to To bacco Smoke None; Cigarette Smoking Last 365 Days No; Reg Smoking Cessation Counseling No entered on: 02/11/19 Assessment and Plan No data available for this section
--- OUTSIDE RECORDS SUMMARY | 2020-04-04 07:52 | XMS REPORT | Summary of Care ---
:1965 Author Organization [facility] Outpatient Imaging [facility] Address [address] [place], [place] [address] Encounter HQ Encntr_alijefferson(FIN) [id number] Date(s): 03/05/19 - 03/05/19 [facility] Outpatient Imaging [address], [address] [place] [phone] Discharge Disposition: Home or Self Care Attending Physician: Antonio Dumont MSN, RN, ELECTRIC VEHICLE ELECTRICIAN-C Referring Physician: Antonio Dumont MSN, RN, ELECTRIC VEHICLE ELECTRICIAN-C Vital Signs No data available for this section Problem List Condition Effective Dates Status Health Status Informant Other specified Active hypothyroidism(Confirmed) Osteoarthritis of knee1 05/01/11 Active Simple obesity(Confirmed) [facility] Allergies, Adverse Reactions, Alerts Substance Reaction Severity Status NKDA Active Medications No data available for this section Results No data available for this section Immunizations Given and Recorded Vaccine Date Status Refusal Reason influenza virus vaccine, live, trivalent 10/25/18 Recorde d Procedures Procedure Date Related Diagnosis Body Site Status Colonoscopy2016 Completed Appendectomy Completed Entire nasal sinus Completed 1done at [facility] and was normal Social History Social History Type Response Smoking Status Never smoker; Exposure to To bacco Smoke None; Cigarette Smoking Last 365 Days No; Reg Smoking Cessation Counseling No entered on: 03/05/19 Assessment and Plan No data available for this section
--- OUTSIDE RECORDS SUMMARY | 2020-04-04 07:52 | XMS REPORT | Summary of Care ---
:1965 Author Organization [facility] Primary Care [facility] Address [address] [place] [address]- Encounter HQ Encntr_alias(FIN) [id number] Date(s): 03/15/20 - 03/16/20 [facility] Primary Care [facility] [address] [place] [address]- [phone] Vital Signs No data available for this section Problem List Condition Effective Dates Status Health Status Informant GERD without esophagitis(Confirmed) Active Hypertension(Confirmed) Active Other specified Active hypothyroidism(Confirmed) Osteoarthritis of knee1 05/01/11 Active Depression screening(Confirmed) Active Simple obesity(Confirmed) Active 1Data migrated from [employer] on 04/23/15. Allergies, Adverse Reactions, Alerts No [...] Completed Entire nasal sinus Completed 1done at [facility] and was normal Social History Social History Type Response Alcohol Never Substance Abuse Use: None. Smoking Status Never smoker; Exposure to To bacco Smoke None; Cigarette Smoking Last 365 Days No; Reg Smoking Cessation Counseling No entered on: 03/16/20 Assessment and Plan No data available for this section
--- OUTSIDE RECORDS SUMMARY | 2020-04-04 07:52 | XMS REPORT | Summary of Care ---
:1965 Author Organization [facility] Primary Care [facility] Address [address] [place] [address]- Encounter HQ Yakelin(ZAC) [id number] Date(s): 10/27/18 - 10/27/18 [facility] Primary Care [facility] [address] [place] [address]- [phone] Discharge Disposition: Home or Self Care Attending Physician: Victor M Lin MD Vital Signs Most recent to oldest [Reference Range]: 1 Height 185.42 cm (10/27/18 1:48 PM) Blood Pressure [90-140/60-90 mmHg] 129/77 mmHg (10/27/18 1:48 PM) Peripheral Pulse Rate [60-100 bpm] 62 bpm (10/27/18 1:48 PM) Weight 117.727 kg (10/27/18 1:48 PM) Body Mass Index 34.24 m2 (10/27/18 1:48 PM) Problem List Condition Effective Dates Status Health Status Informant Other specified Active hypothyroidism(Confirmed) Osteoarthritis of knee1 05/01/11 Active Simple obesity(Confirmed) Active 1Data migrated from [employer] on 04/23/15. Allergies, Adverse Reactions, Alerts No Known Medication Allergies Medications Adderall 10 mg oral tablet 10 mg = 1 tab, PO, QAM, # 60 tab, 0 Refill(s) Start Date: 10/27/18 Stop Date: 02/09/19 Status: DiscontinuedamLODIPine-benazepril 5 mg-20 mg oral capsule 1 cap, PO, Daily, # 30 cap, 0 Refill(s) Start Date: 10/27/18 Stop Date: 02/09/19 Status: Discontinuedhydrochlorothiazide 25 mg oral tablet 25 mg = 1 tab, PO, Daily, # 30 tab, 0 Refill(s) Start Date: 10/27/18 Stop Date: 02/09/19 Status: Discontinuedlevothyroxine 150 mcg (0.15 mg) oral tablet 150 microgram = 1 tab, PO, Daily, # 30 tab, 0 Refill(s) Start Date: 10/27/18 Stop Date: 12/19/18 Status: Discontinuedlevothyroxine 150 mcg (0.15 mg) oral tablet 150 microgram = 1 tab, PO, Daily, # 90 tab, 1 Refill(s), Pharmacy: [facility] [id number] Start Date: 12/19/18 Stop Date: 02/11/19 Status: Completedpantoprazole 40 mg oral enteric coated tablet 40 mg = 1 tab, PO, Daily, # 30 tab, 0 Refill(s) Start Date: 10/27/18 Stop Date: 04/23/19 Status: DiscontinuedVitamin D3 0 Refill(s) Start Date: 10/27/18 Status: Ordered Results No data available for this section Immunizations Given and Recorded Vaccine Date Status Refusal Reason influenza virus vaccine, live, trivalent 10/25/18 Recorde d Procedures Procedure Date Related Diagnosis Body Site Status 2016 Completed Appendectomy Completed Entire nasal sinus Completed 1done at [facility] and was normal Social History Social History Type Response Smoking Status Never smoker; Exposure to To bacco Smoke None; Cigarette Smoking Last 365 Days No; Reg Smoking Cessation Counseling No entered on: 03/05/19 Assessment and Plan No data available for this section
--- OUTSIDE RECORDS SUMMARY | 2020-04-04 07:52 | XMS REPORT | Summary of Care ---
:1965 Author Organization [facility] Primary Care [facility] Address [address] [place] [address]- Encounter HQ Yakelin(FIN) [id number] Date(s): 02/09/19 - 02/09/19 [facility] Care [facility] [address] [place] [address]- [phone] Discharge Disposition: Home or Self Care Attending Physician: Antonio Dumont MSN, RN, ELECTROLYSIS NEEDLE OPERATOR-C Vital Signs Most recent to oldest [Reference Range]: 1 Height 185.42 cm (02/09/19 10:58 AM) Temperature Oral [96.4-99.1 DegF] 98.2 DegF (02/09/19 10:58 AM) Blood Pressure [90-140/60-90 mmHg] 133/88 mmHg (02/09/19 10:58 AM) Respiratory Rate [14-20 BRMIN] 18 BRMIN (02/09/19 10:58 AM) Peripheral Pulse Rate [60-100 bpm] 66 bpm (02/09/19 10:58 AM) Weight 122.869 kg (02/09/19 10:58 AM) Body Mass Index 35.74 m2 (02/09/19 10:58 AM) Problem List Condition Effective Dates Status Health Status Informant Other specified Active hypothyroidism(Confirmed) Osteoarthritis of knee1 05/01/11 Active Simple obesity(Confirmed) Active 1Data migrated from [employer] on 04/23/15. Allergies, Adverse Reactions, Alerts Substance Reaction Severity Status NKDA Active Medications amLODIPine-benazepril 5 mg-20 mg oral capsule 1 cap, PO, Daily, # 90 cap, 1 Refill(s), Pharmacy: [facility] [id number] Start Date: 02/09/19 Stop Date: 08/08/19 Status: Orderedbetamethasone-clotrimazole topical 0.05%-1% cream 1 appl, TOP, BID, PRN Apply to affected areas, X 14 day, # 45 gm, 1 Refill(s), Pharmacy: [facility] [id number] Start Date: 02/09/19 Stop Date: 03/09/19 Status: Orderedhydrochlorothiazide 25 mg oral tablet 25 mg = 1 tab, PO, Daily, # 90 tab, 1 Refill(s), Pharmacy: [facility] [id number] Start Date: 02/09/19 Status: OrderedShingrix intramuscular injection 0.5 mL, IM, ONCE, repeat dose in 2 to 6 months, # 1 mL, 1 Refill(s), Pharmacy: [facility] [id number] Start Date: 02/09/19 Status: Ordered Results No data available for this section Immunizations Given and Recorded Vaccine Date Status Refusal Reason influenza virus vaccine, live, trivalent 10/25/18 Recorde d Procedures Procedure Date Related Diagnosis Body Site Status Colonoscopy2016 Completed Appendectomy Completed Entire nasal sinus Completed 1done at [facility] and was normal Social History Social History Type Response Smoking Status Never smoker; Exposure to To bacco Smoke None; Cigarette Smoking Last 365 Days No; Reg Smoking Cessation Counseling No entered on: 02/11/19 Assessment and Plan No data available for this section
--- OUTSIDE RECORDS SUMMARY | 2020-04-04 07:52 | XMS REPORT | Summary of Care ---
:1965 Author Organization [facility] Primary Care [facility] Address [address] [place] [address]- Encounter HQ Encntr_alias(FIN) [id number] Date(s): 03/15/20 - 03/16/20 [facility] Primary Care [facility] [address] [place] [address]- [phone] Vital Signs No data available for this section Problem List Condition Effective Dates Status Health Status Informant GERD without esophagitis(Confirmed) Active Hypertension(Confirmed) Active Other specified Active hypothyroidism(Confirmed) Osteoarthritis of knee1 05/01/11 Active Depression screening(Confirmed) Active Simple obesity(Confirmed) Active 1Data migrated from [employer] on 04/23/15. Allergies, Adverse Reactions, Alerts No [...] Entire nasal sinus Completed 1done at [facility] and was normal Social History Social History Type Response Alcohol Never Substance Abuse Use: None. Smoking Status Never smoker; Exposure to To bacco Smoke None; Cigarette Smoking Last 365 Days No; Reg Smoking Cessation Counseling No entered on: 03/16/20 Assessment and Plan No data available for this section
--- OUTSIDE RECORDS SUMMARY | 2020-04-04 07:52 | XMS REPORT | Summary of Care ---
:1965 Author Organization [facility] Primary Care [place] Address [address] [place] [address]- Encounter HQ Encntr_alias(FIN) [id number] Date(s): 12/02/19 - 12/03/19 [facility] Care [place] [address] [place] [address]- [phone] Vital Signs No data available for this section Problem List Condition Effective Dates Status Health Status Informant GERD without esophagitis(Confirmed) Active Hypertension(Confirmed) Active Other specified Active hypothyroidism(Confirmed) Osteoarthritis of knee1 05/01/11 Active Simple obesity(Confirmed) Active 1Data migrated from [employer] on 04/23/15. Allergies, Adverse Reactions, Alerts No Known Medication Allergies Medications No data available for this section Results No data available for this section Immunizations Given and Recorded Vaccine Date Status Refusal Reason influenza virus vaccine, live, trivalent 10/25/18 Recorde d Procedures Procedure Date Related Diagnosis Body Site Status Colonoscopy2016 Completed Appendectomy Completed Entire nasal sinus Completed 1done at [facility] and was normal Social History Social History Type Response Smoking Status Never smoker; Exposure to To bacco Smoke None; Cigarette Smoking Last 365 Days No; Reg Smoking Cessation Counseling No entered on: 12/01/19 Assessment and Plan No data available for this section
--- OUTSIDE RECORDS SUMMARY | 2020-04-04 07:52 | XMS REPORT | Summary of Care ---
:1965 Author Organization [facility] Address [address] [place] [id number] Care Team Providers Name Role Phone Pcp, Does Not Have A Primary Care Provider Reason for Visit Reason Comments Arm Pain NWC Right arm bicep injury D OI 04/3019 Auth/Cert Status Reason Specialty Diagnoses / Referred By Referred To Procedures Contact Contact Orthopedic Surgery Diagnoses [facility] RT BICEP [facility] [address] [place] [address] Encounter Details Date Type Department Care Team Description 07/15/2019 Office Visit [facility] Orthopaedic Blair Sotoury of tendon of Surgery- Jeanne Garg MD long head of right [address], [address], initial [address] encounter (Primary Dx) [place] [address] [address], [place] [phone] [address] Allergies No Known Allergiesdocumented as of this encounter (statuses as of 07/15/2019) Medications Medication Sig Dispensed Refills Start Date End Date Status levothyroxine 150 mcg TK 1 T PO D 1 06/30/2019 Active tablet FOR THYROID pantoprazole (PROTONIX) 40 Protonix 40 mg tablet,delayed release 0 04/03/2017 Active mg EC tablet Take 1 tablet every day by oral route. hydroCHLOROthiazide 25 mg TK 1 T PO D 1 05/29/2019 Active tablet FOR BLOOD PRESSURE amlodipine-benazepril 5-20 TK ONE C PO D 1 9 Active mg per capsule FOR BP dextroamphetamine-amphetam Adderall 10 mg tablet 0 Active ine (ADDERALL) 10 mg Take 1 tablet every day by oral route. tablet documented as of this encounter (statuses as of 07/15/2019) Active Problems Not on filedocumented as of this encounter (statuses as of 07/15/2019) Social History Tobacco Use Types Packs/Day Years Used Date Never Assessed Sex Assigned at Date Recorded Not on file Job Start Date Occupation Industry Not on file Not on file Not on file Travel History Travel Start Travel End No recent travel history available. documented as of this encounter Last Filed Vital Signs Vital Sign Reading Time Taken Comments Blood Pressure 130/72 07/15/2019 1:12 PM CDT Pulse 68 07/15/2019 1:12 PM CDT Temperature 37.4 C (99.4 F) 07/15/2019 1:12 PM CDT Respiratory Rate - - Oxygen Saturation - - Inhaled Oxygen Concentration - - Weight 102.8 kg (226 lb 9.6 oz) 07/15/2019 1:12 PM CDT Height 185.4 cm (6' 1") 07/15/2019 1:12 PM CDT Body Mass Index 29.9 07/15/2019 1:12 PM CDT documented in this encounter Progress Notes Blair Soto MD - 07/15/2019 1:15 PM CDT Cc: Chief Complaint Patient presents with Arm Pain [facility] Right arm bicep injury DOI 04/3019 DOI 05/24/2019 Pain located in the right bicep tendon Shayne Murillo is a 53 year old male. Arm Pain The incident occurred more than 1 week ago. The incident occurred at work. Injury mechanism: injuredarm when lifting The pain is present in the right shoulder. The quality of the pain is described asaching, burning and stabbing. The pain is at a severity of 5/10. The pain is moderate. The pain has been intermittent since the incident. Associated symptoms include muscle weakness. The symptoms are aggravated by movement, lifting and palpation. He has tried rest for the symptoms. The treatment provided mild relief. Allergies Shayne has No Known Allergies. Medications Outpatient Medications Prior to Visit Medication Sig Dispense Refill amlodipine-benazepril 5-20 mg per capsule TK ONE C PO D FOR BP 1 dextroamphetamine-amphetamine (ADDERALL) 10 mg tablet Adderall 10 mg tablet Take 1 tablet every day by oral route. hydroCHLOROthiazide 25 mg tablet TK 1 T PO D FOR BLOOD PRESSURE 1 levothyroxine 150 mcg tablet TK 1 T PO D FOR THYROID 1 pantoprazole (PROTONIX) 40 mg EC tablet Protonix 40 mg tablet,delayed release Take 1 tablet every day by oral route. No facility-administered medications prior to visit. Histories No past medical history on file. No past surgical history on file. Social History Socioeconomic History Marital status: Spouse name: Not on file Number of children: Not on file Years of education: Not on file Highest education level: Not on file Occupational History Not on file Social Needs Financial resource strain: Not on file Food insecurity: Worry: Not on file Inability: Not on file Transportation needs: Medical: Not on file Non-medical: Not on file Tobacco Use Smoking status: Not on file Substance and Sexual Activity Alcohol use: Not on file Drug use: Not on file Sexual activity: Not on file Lifestyle Physical activity: Days per week: Not on file Minutes per session: Not on file Stress: Not on file Relationships Social connections: Talks on phone: Not on file Gets together: Not on file Attends oriental orthodox service: Not on file Active member of club or organization: Not on file Attends meetings of clubs or organizations: Not on file Relationship status: Not on file Intimate partner violence: Fear of current or ex partner: Not on file Emotionally abused: Not on file Physically abused: Not on file Forced sexual activity: Not on file Other Topics Concern Not on file Social History Narrative Not on file No family history on file. Review of Systems Vital Signs BP 130/72 (BP Location: Left arm, Patient Position: Sitting, BP CUFF SIZE: Adult Large) | Pulse 68| Temp 37.4 C (99.4 F) (Oral) | Ht 6' 1" (1.854 m) | Wt 226 lb 9.6 oz (102.8 kg) | BMI 29.90 kg/m Physical Exam Musculoskeletal: Right shoulder: He exhibits decreased range of motion, swelling, pain and decreased strength. Arms: General: Well-developed well-nourished oriented to person place and time HEENT normocephalic atraumatic atraumatic pupils equal round reactive to light extraocular muscles intact Cervical thoracic and lumbar spine without focal deficit normal kyphosis and lordosis Chest clear to auscultation and percussion Cardiovascular regular rate and rhythm without gallop rub or murmur soft without organomegaly Normal bowel sounds Neurologic: Focal myotome or dermatomal deficits Vascular: Intact symmetrical bilateral upper and lower extremities Skin without stasis varicosities or breakdown Extremities without cyanosis clubbing or edema Lymphatics no peripheral lymphedema Psych normal mood and affect. Neurovascular function is intact. To include brisk capillary refill warm pink skin active motor function and sensory function intact. Nursing note and vitals reviewed. Assessment/Plan Rupture long head of the biceps Will order an MRI. Surgical repair at this point may not be successful to help regain strength even if this was an acute injury. Will discuss treatment plan pending results. restrictions as noted on [facility] form. documented in this encounter Plan of Treatment Health Maintenance Due Date Last Done Comments DTaP,Tdap,and Td Vaccines (1 - 1985 Tdap) COLONOSCOPY 2016 Zoster Recombinant Vaccine 2016 (SHINGRIX) (1 of 2) INFLUENZA VACCINE (#1) 2019 PNEUMOCOCCAL 0-64 YEARS COMBINED Aged Out No longer eligible based on SERIES patient's age to complete this topic documented as of this encounter Results Not on filedocumented in this encounter Visit Diagnoses Diagnosis Injury of tendon of long head of right b iceps, initial encounter - Primary documented in this encounter documented as of this encounter
--- OUTSIDE RECORDS SUMMARY | 2020-04-04 07:52 | XMS REPORT | Summary of Care ---
:1965 Author Organization [facility] Primary Care [facility] Address [address] [place] [address]- Encounter HQ Yakelin(FIN) [id number] Date(s): 03/05/19 - 03/05/19 [facility] Care [facility] [address] [place] [address] [phone] Discharge Disposition: Home or Self Care Attending Physician: Antonio Dumont MSN, RN, SEAFOOD HARVESTER-C Vital Signs Most recent to oldest [Reference Range]: 1 Height 185.42 cm (03/05/19 2:16 PM) Temperature Oral [96.4-99.1 DegF] 98.2 DegF (03/05/19 2:16 PM) Blood Pressure [90-140/60-90 mmHg] 129/88 mmHg (03/05/19 2:16 PM) Peripheral Pulse Rate [60-100 bpm] 70 bpm (03/05/19 2:16 PM) Weight 120.455 kg (03/05/19 2:16 PM) Body Mass Index 35.04 m2 (03/05/19 2:16 PM) Problem List Condition Effective Dates Status Health Status Informant Other specified Active hypothyroidism(Confirmed) Osteoarthritis of knee1 05/01/11 Active Simple obesity(Confirmed) Active 1Data migrated from [employer] on 04/23/15. Allergies, Adverse Reactions, Alerts Substance Reaction Severity Status NKDA Active Medications cyclobenzaprine 10 mg oral tablet 10 mg = 1 tab, PO, Bedtime, PRN for spasms, do not drive or operate heavy machinery while taking, X 30 day, # 30 tab, 0 Refill(s), Pharmacy: [facility] [id number] Start Date: 03/05/19 Stop Date: 04/04/19 Status: Ordered Results No data available for this section Immunizations Given and Recorded Vaccine Date Status Refusal Reason influenza virus vaccine, live, trivalent 10/25/18 Recorde d Procedures Procedure Date Related Diagnosis Body Site Status Colonoscopy2016 Completed Appendectomy Completed Entire nasal sinus Completed 1done at [facility] and was normal Social History Social History Type Response Smoking Status Never smoker; Exposure to To bacco Smoke None; Cigarette Smoking Last 365 Days No; Reg Smoking Cessation Counseling No entered on: 03/05/19 Assessment and Plan No data available for this section
--- OUTSIDE RECORDS SUMMARY | 2020-04-04 07:52 | XMS REPORT | Summary of Care ---
:1965 Author Organization [facility] Primary Care [place] Address [address] [place] [address]- Encounter HQ Encntr_óscar(FIN) [id number] Date(s): 03/15/20 - 03/15/20 [facility] Care [place] [address] [place] [address]- [phone] Attending Physician: Matthew Sher MD Vital Signs No data available for this section Problem List Condition Effective Dates Status Health Status Informant GERD without esophagitis(Confirmed) Active Hypertension(Confirmed) Active Other specified Active hypothyroidism(Confirmed) Osteoarthritis of knee1 05/01/11 Active Depression screening(Confirmed) Active Simple obesity(Confirmed) Active 1Data migrated from [employer] on 04/23/15. Allergies, Adverse Reactions, Alerts No [...] Completed Entire nasal sinus Completed 1done at [facility] and was normal Social History Social History Type Response Alcohol Never Substance Abuse Use: None. Smoking Status Never smoker; Exposure to To bacco Smoke None; Cigarette Smoking Last 365 Days No; Reg Smoking Cessation Counseling No entered on: 03/16/20 Assessment and Plan No data available for this section
--- OUTSIDE RECORDS SUMMARY | 2020-04-04 07:52 | XMS REPORT | Summary of Care ---
:1965 Author Organization [facility] Primary Care [place] Address [address] [place] [address]- Encounter HQ Monica_óscar(FIN) [id number] Date(s): 12/01/19 - 12/01/19 [facility] Care [place] [address] [place] [address]- [phone] Discharge Disposition: Home or Self Care Attending Physician: Antonio Dumont MSN, RN, MACHINE WOOD SANDER-C Vital Signs Most recent to oldest [Reference Range]: 1 Height 184.15 cm (12/01/19 2:27 PM) Temperature Oral [96.4-99.1 DegF] 98.7 DegF (12/01/19 2:27 PM) Blood Pressure [90-140/60-90 mmHg] 141/90 mmHg *HI* (12/01/19 2:27 PM) Peripheral Pulse Rate [60-100 bpm] 65 bpm (12/01/19 2:27 PM) Weight 125.938 kg (12/01/19 2:27 PM) Body Mass Index 37.14 m2 (12/01/19 2:27 PM) Problem List Condition Effective Dates Status Health Status Informant GERD without esophagitis(Confirmed) Active Hypertension(Confirmed) Active Other specified Active hypothyroidism(Confirmed) Osteoarthritis of knee1 05/01/11 Active Simple obesity(Confirmed) Active 1[facility] on 04/23/15. Allergies, Adverse Reactions, Alerts No Known Medication Allergies Medications amLODIPine-benazepril 5 mg-20 mg oral capsule 1 cap, PO, Daily, for blood pressure, # 90 cap, 1 Refill(s), Pharmacy: [facility] #[id number] Start Date: 12/01/19 Status: Orderedhydrochlorothiazide 25 mg oral tablet 25 mg = 1 tab, PO, Daily, for blood pressure, # 90 tab, 1 Refill(s), Pharmacy: [facility] #[id number] Start Date: 12/01/19 Status: OrderedMedrol Dosepak 4 mg oral tablet See Instructions, PO, Take by mouth as directed on label., # 1 Pack, 0 Refill(s), Pharmacy: [facility] #[id number] Start Date: 12/01/19 Stop Date: 12/07/19 Status: Ordered Results No data available for this section Immunizations Given and Recorded Vaccine Date Status Refusal Reason influenza virus vaccine, live, trivalent 10/25/18 Recorde d Procedures Procedure Date Related Diagnosis Body Site Status 2016 Completed Appendectomy Completed Entire nasal sinus Completed 1done at [facility] and was normal Social History Social History Type Response Smoking Status Never smoker; Exposure to To bacco Smoke None; Cigarette Smoking Last 365 Days No; Reg Smoking Cessation Counseling No entered on: 12/01/19 Assessment and Plan No data available for this section
--- OUTSIDE RECORDS SUMMARY | 2020-04-04 07:53 | XMS REPORT | Summary of Care ---
:1965 Author Organization [facility] Address [address] [place] [address] Care Team Providers Name Role Phone Pcp, Does Not Have A Primary Care Provider Reason for Referral MRI/CAT Scan (Routine) Status Reason Specialty Diagnoses / Referred By Referred To Procedures Contact Contact New Request Diagnostic Diagnoses Injury of tendon of long head of right biceps, initial encounter Blair Soto Radiology Procedures MR SHOULDER RIGHT LACI Garg MD [address] [place] [address] [place] [address] Reason for Visit Reason Comments Orders Right bicep tendon MRI Encounter Details Date Type Department Care Team Description 07/24/2019 Telephone [facility] Blair Soto (Right bicep Surgery- Jeanne Garg MD tendon MRI) [address] [facility], [address] [place] [address] [place] [address] [place], [place] [phone] Allergies No Known Allergiesdocumented as of this encounter (statuses as of 07/24/2019) Medications Medication Sig Dispensed Refills Start Date [...] as of this encounter (statuses as of 07/24/2019) Active Problems Not on filedocumented as of this encounter (statuses as of 07/24/2019) Social History Tobacco Use Types Packs/Day Years Used Date Never Assessed Sex Assigned at Date Recorded Not on file Job Start Date Occupation Industry Not on file Not on file Not on file Travel History Travel Start Travel End No recent travel history available. documented as of this encounter Last Filed Vital Signs Not on filedocumented in this encounter Plan of Treatment Name Type Priority Associated Diagnoses Order S chedule MR SHOULDER RIGHT WO IMAGING Routine Injury of tendon of long Expected: 07/24/2019, CONTRAST head of right biceps, s: 07/24/2020 initial encounter Health Maintenance Due Date Last Done Comments DTaP,Tdap,and Td Vaccines 1985 (1 - Tdap) COLONOSCOPY 2016 Zoster Recombinant Vaccine 2016 (SHINGRIX) (1 of 2) INFLUENZA VACCINE (#1) 2019 09/25/2018, 10/21/2017, 09/14/2016, Additional history exists PNEUMOCOCCAL 0-64 YEARS Aged Out No longe r eligible COMBINED SERIES based on patient 's age to complete this topic documented as of this encounter Results Not on filedocumented in this encounter Visit Diagnoses Diagnosis Injury of tendon of long head of right b iceps, initial encounter - Primary documented in this encounter Insurance Payer Benefit Plan / Group Subscriber ID Effective Dates Phone Address Type [facility] GENERIC [facility] GENERIC [id number] 2019-Present [facility] documented as of this encounter
--- OUTSIDE RECORDS SUMMARY | 2020-04-04 07:53 | XMS REPORT | Summary of Care ---
:1965 Author Organization [facility] Address [address] [place] [address] Care Team Providers Name Role Phone Pcp, Does Not Have A Primary Care Provider Reason for Visit Reason Comments Arm Pain NWC Right arm bicep injury D OI 04/3019 Auth/Cert Status Reason Specialty Diagnoses / Referred By Referred To Procedures Contact Contact Orthopedic Surgery Diagnoses [facility]P [facility] [address] [place] [address] Encounter Details Date Type Department Care Team Description 07/15/2019 Office Visit [facility] Blair Sotoury of tendon of Surgery- Jeanne Garg MD long head of right [address], [address] biceps, initial [address] encounter (Primary Dx) [place] [address] [place], [place] [phone] Allergies No Known Allergiesdocumented as of [...] Chief Complaint Patient presents with Arm Pain [facility] Right arm bicep injury DOI 04/3019 DOI [...] file Gets together: Not on file Attends episcopal service: Not on file Active member of [...]
--- OUTSIDE RECORDS SUMMARY | 2020-04-04 07:53 | XMS REPORT | Summary of Care ---
:1965 Author Organization [facility] - Health Address [address] [place] [address] Care Team Providers Name Role Phone Pcp, Does Not Have A Primary Care Provider Encounter Details Date Type Department Care Team Description 07/17/2019 Orders Only [facility] Doctor Unassigned, No [address] [facility] [place] [address] [address] [place] [address] Allergies No Known Allergiesdocumented as of this encounter (statuses as of 07/30/2019) Medications Medication Sig Dispensed Refills Start Date [...] as of this encounter (statuses as of 07/30/2019) Active Problems Not on filedocumented as of this encounter (statuses as of 07/30/2019) Social History Tobacco Use Types Packs/Day Years Used Date Never Assessed Sex Assigned at Date Recorded Not on file Job Start Date Occupation Industry Not on file Not on file Not on file Travel History Travel Start Travel End No recent travel history available. documented as of this encounter Last Filed Vital Signs Not on filedocumented in this encounter Plan of Treatment Health [...] this topic documented as of this encounter Procedures Procedure Name Priority Date/Time Associated Diagnosis Comme nts WORKERS COMPENSATION Routine 07/17/2019 12:01 AM CDT documented in this encounter Results Not on filedocumented in this encounter Insurance Payer Benefit Plan / Group Subscriber ID Effective Dates Phone Address Type [facility] GENERIC [facility] GENERIC [id number] 2019-Present [facility] documented as of this encounter
--- OUTSIDE RECORDS SUMMARY | 2020-04-04 07:53 | XMS REPORT ---
:1965 Author Organization [facility] Address [address] [place] [address] Care Team Providers Name Role Phone Unavailable Unavailable Unavailable Problems This patient has no known problems. Allergies, Adverse Reactions, Alerts This patient has no known allergies or adverse reactions. Medications This patient has no known medications.
[2020-04-04] MEDS ORDERED: ASPIRIN EC 81 MG TAB PO ONE (08:11)
[2020-04-04] MEDS ORDERED: NA CHLORIDE 0.9% 1,000 ML ONE (08:11)
[2020-04-04] MEDS ORDERED: METOPROLOL TAR 50 MG TAB ONE (08:11)
[2020-04-04 08:25] LABS: Basophils % 1.1 % (0-1.3); Hematocrit 45.6 % (39.6-49.0); MPV 9.1 fL (7.6-11.3); Protime INR 0.99; RBC Red Blood Cell Count 4.82 M/uL (4.33-5.43)
[2020-04-04 08:38] LABS: ALT/SGPT 32 U/L (12-78); AST/SGOT 30 U/L (15-37); Albumin 3.9 g/dL (3.4-5.0); Alkaline Phosphatase 67 U/L (45-117); BUN Blood Urea Nitrogen 12 mg/dL (7-18); Bicarbonate 26 mmol/L (21-32); Bilirubin Direct 0.1 mg/dL (0-0.2); Bilirubin Total 0.3 mg/dL (0.2-1.0); Glucose Level 113 mg/dL (74-106); Magnesium 2.1 mg/dL (1.8-2.4); Potassium 3.5 mmol/L (3.5-5.1); Protein, Total 7.6 g/dL (6.4-8.2); Sodium Level 138 mmol/L (136-145); Troponin (Emerg Dept Use Only) < 0.02 ng/mL (0.0-0.045)
--- NOTE | 2020-04-04 08:42 | ER ---
Nurse's Notes [facility] Name: Shayne Murillo Age: 54 yrs Sex: Male : 1965 Arrival Date: 04/04/2020 Time: 07:48 Bed 25 Private MD: Diagnosis: Chest pain, unspecified;Essential (primary) hypertension Presentation: 04/04 07:57 Chief complaint: Patient states: HEADACHE AND SUBSTERNAL CP RADIATING TO LUE SINCE bp 0715. Coronavirus screen: Proceed with normal triage. Ebola Screen: No symptoms or risks identified at this time. Initial Sepsis Screen: Does the patient meet any 2 criteria? No. Patient's initial sepsis screen is negative. Does the patient have a suspected source of infection? No. Patient's initial sepsis screen is negative. Risk Assessment: Do you want to hurt yourself or someone else? Patient reports no desire to harm self or others. Onset of symptoms was April 04, 2020 at 07:15. 07:57 Method Of Arrival: Ambulatory bp 07:57 Acuity: KEITH 3 bp Triage Assessment: 07:59 General: Appears in no apparent distress. comfortable, Behavior is cooperative, bp appropriate for age, anxious. Pain: Complains of pain in chest. EENT: No deficits noted. Neuro: No deficits noted. Cardiovascular: Rhythm is sinus rhythm. Respiratory: No deficits noted. GI: No signs and/or symptoms were reported involving the gastrointestinal system. : No signs and/or symptoms were reported regarding the genitourinary system. Derm: No deficits noted. Musculoskeletal: No deficits noted. Historical: - Allergies: 07:59 No Known Allergies; bp - Home Meds: 07:59 Lotrel 5-20 mg Oral cap [Active]; Hydrochlorothiazide Oral [Active]; bp - PMHx: 07:59 ADD/ADHD; Anxiety; Hypertension; Hypothyroidism; bp - Immunization history:: Adult Immunizations up to date. - Social history:: Smoking status: Patient denies any tobacco usage or history of. - Family history:: not pertinent. Screenin:10 Abuse screen: Denies threats or abuse. Denies injuries from another. Nutritional bp screening: No deficits noted. Tuberculosis screening: No symptoms or risk factors identified. Fall Risk None identified. Assessment: 08:00 General: SEE TRIAGE NOTE. bp 08:55 Reassessment: BILATERAL NIBP EQUIVALENT. ADMIT INITIATED. VS STABLE ON MONITOR. bp 09:17 Reassessment: ADMIT PROVIDER AT B/S. bp 09:31 Reassessment: PER HOSPITALIST, PT NPO FOR STRESS TEST. bp 10:46 Reassessment: PT RESTING QUIETLY, VS STABLE ON MONITOR. ADMIT AND STRESS TEST PENDING. bp Vital Signs: 07:57 BP 140 / 96; Pulse 84; Resp 16; Temp 97.8; Pulse Ox 100% ; Weight 122.02 kg; Height 6 bp ft. 1 in. (185.42 cm); 08:50 BP 127 / 78 RA; Pulse 74; Resp 23; Pulse Ox 98% ; bp 08:54 BP 118 / 82 LA; Pulse 75; Resp 23; Pulse Ox 99% ; bp 09:43 BP 112 / 94; Pulse 62; Resp 20; Pulse Ox 96% ; sv 10:46 BP 100 / 72; Pulse 61; Resp 17; Pulse Ox 99% ; bp 07:57 Body Mass Index 35.49 (122.02 kg, 185.42 cm) bp ED Course: 07:48 Patient arrived in ED. ag5 07:50 Misael Mack, RN is Primary Nurse. bp 07:50 John Nickerson MD is Attending Physician. alla 07:59 Triage completed. bp 07:59 Arm band placed on. bp 08:10 Patient has correct armband on for positive identification. Bed in low position. Call bp light in reach. Side rails up X2. monitoring coordinator on. Pulse ox on. NIBP on. 08:10 Inserted saline lock: 20 gauge in right antecubital area, using aseptic technique. bp Blood collected. Patient maintains SpO2 saturation greater than 95% on room air. 08:35 CT Head Brain wo Cont In Process Unspecified. EDMS 08:35 EKG done, by ED staff, reviewed by John Nickerson MD. dh3 08:41 Juan A Kim DO is Hospitalizing Provider. alla 09:07 XRAY Chest (1 view) In Process Unspecified. EDMS Administered Medications: 08:10 Drug: NS 0.9% 1000 ml Route: IV; Rate: 125 ml/hr; Site: right antecubital; bp 11:03 Follow up: Response: No adverse reaction; IV Status: Infusion continued upon admission sv 08:10 Drug: Aspirin 81 mg Route: PO; bp 08:53 Follow up: Response: No adverse reaction bp 08:10 Drug: Lopressor (metoprolol TARTRATE) 50 mg Route: PO; bp 08:53 Follow up: Response: No adverse reaction bp 08:50 Drug: Lovenox 100 mg Route: Sub-Q; Site: right lower abdomen; bp 09:26 Follow up: Response: No adverse reaction bp Outcome: 08:41 Decision to Hospitalize by Provider. [facility] 14:37 Patient left the ED. [facility] Signatures: Dispatcher [employer] Elizabeth Armendariz, John May RN, MD MD cha Herrera, Deanna [facility] Misael Mack RN RN Shanti Vivas 5
--- NOTE | 2020-04-04 08:42 | EDPHYS ---
Physician Documentation [facility] Name: Shayne Murillo Age: 54 yrs Sex: Male : 1965 Arrival Date: 04/04/2020 Time: 07:48 Bed 25 Private MD: ED Physician John Nickerson HPI: 04/04 07:55 This 54 yrs old Black Male presents to ER via Unassigned with complaints of Chest Pain. [facility] 07:55 The patient or guardian reports chest pain that is located primarily in the substernal alla area. Onset: just prior to arrival, this morning. The pain radiates to the left arm. Associated signs and symptoms: The patient has no apparent associated signs or symptoms. The chest pain is described as dull, a pressure. Duration: The patient or guardian reports a single episode, that is still ongoing. Modifying factors: The symptoms are alleviated by nothing. the symptoms are aggravated by nothing. Severity of pain: At its worst the pain was moderate in the emergency department the pain has improved moderately. The patient has experienced similar episodes in the past, a few times. Historical: - Allergies: 07:59 No Known Allergies; bp - Home Meds: 07:59 Lotrel 5-20 mg Oral cap [Active]; Hydrochlorothiazide Oral [Active]; bp - PMHx: 07:59 ADD/ADHD; Anxiety; Hypertension; Hypothyroidism; bp - Immunization history:: Adult Immunizations up to date. - Social history:: Smoking status: Patient denies any tobacco usage or history of. - Family history:: not pertinent. ROS: 07:55 Constitutional: Negative for fever, chills, and weight loss, Eyes: Negative for injury, alla pain, redness, and discharge, ENT: Negative for injury, pain, and discharge, Neck: Negative for injury, pain, and swelling, Respiratory: Negative for shortness of breath, cough, wheezing, and pleuritic chest pain, Abdomen/GI: Negative for abdominal pain, nausea, vomiting, diarrhea, and constipation, Back: Negative for injury and pain, : Negative for injury, bleeding, discharge, and swelling, MS/Extremity: Negative for injury and deformity, Skin: Negative for injury, rash, and discoloration, Neuro: Negative for headache, weakness, numbness, tingling, and seizure, Psych: Negative for depression, anxiety, suicide ideation, homicidal ideation, and hallucinations, Allergy/Immunology: Negative for hives, rash, and allergies, Endocrine: Negative for neck swelling, polydipsia, polyuria, polyphagia, and marked weight changes, Hematologic/Lymphatic: Negative for swollen nodes, abnormal bleeding, and unusual bruising. 07:55 Cardiovascular: Positive for chest pain, of the chest and left arm. Exam: 07:55 Constitutional: This is a well developed, well nourished patient who is awake, alert, alla and in no acute distress. Head/Face: Normocephalic, atraumatic. Eyes: Pupils equal round and reactive to light, extra-ocular motions intact. Lids and lashes normal. Conjunctiva and sclera are non-icteric and not injected. Cornea within normal limits. Periorbital areas with no swelling, redness, or edema. ENT: Nares patent. No nasal discharge, no septal abnormalities noted. Tympanic membranes are normal and external auditory canals are clear. Oropharynx with no redness, swelling, or masses, exudates, or evidence of obstruction, uvula midline. Mucous membranes moist. Neck: Trachea midline, no thyromegaly or masses palpated, and no cervical lymphadenopathy. Supple, full range of motion without nuchal rigidity, or vertebral point tenderness. No Meningismus. Chest/axilla: Normal chest wall appearance and motion. Nontender with no deformity. No lesions are appreciated. Cardiovascular: Regular rate and rhythm with a normal S1 and S2. No gallops, murmurs, or rubs. Normal PMI, no JVD. No pulse deficits. Respiratory: Lungs have equal breath sounds bilaterally, clear to auscultation and percussion. No rales, rhonchi or wheezes noted. No increased work of breathing, no retractions or nasal flaring. Abdomen/GI: Soft, non-tender, with normal bowel sounds. No distension or tympany. No guarding or rebound. No evidence of tenderness throughout. Back: No spinal tenderness. No costovertebral tenderness. Full range of motion. Male : Normal genitalia with no discharge or lesions. Skin: Warm, dry with normal turgor. Normal color with no rashes, no lesions, and no evidence of cellulitis. MS/ Extremity: Pulses equal, no cyanosis. Neurovascular intact. Full, normal range of motion. Neuro: Awake and alert, GCS 15, oriented to person, place, time, and situation. Cranial nerves II-XII grossly intact. Motor strength 5/5 in all extremities. Sensory grossly intact. Cerebellar exam normal. Normal gait. Psych: Awake, alert, with orientation to person, place and time. Behavior, mood, and affect are within normal limits. 07:58 Musculoskeletal/extremity: DVT Exam: No signs of deep vein thrombosis. no pain, no alla swelling, no tenderness, negative Homans' sign noted on exam, no appreciated bluish discoloration, no erythema, no increased warmth. 08:33 ECG was reviewed by the Attending Physician. [facility] Vital Signs: 07:57 BP 140 / 96; Pulse 84; Resp 16; Temp 97.8; Pulse Ox 100% ; Weight 122.02 kg; Height 6 bp ft. 1 in. (185.42 cm); 08:50 BP 127 / 78 RA; Pulse 74; Resp 23; Pulse Ox 98% ; bp 08:54 BP 118 / 82 LA; Pulse 75; Resp 23; Pulse Ox 99% ; bp 09:43 BP 112 / 94; Pulse 62; Resp 20; Pulse Ox 96% ; sv 10:46 BP 100 / 72; Pulse 61; Resp 17; Pulse Ox 99% ; bp 07:57 Body Mass Index 35.49 (122.02 kg, 185.42 cm) bp MDM: 07:50 Patient medically screened. [facility] 07:58 Data reviewed: vital signs, nurses notes, lab test result(s), EKG, radiologic studies, alla plain films. 07:59 Differential diagnosis: abnormal EKG, acute myocardial infarction, chest wall pain, alla congestive heart failure hiatal hernia, pleurisy, stable angina, unstable angina. HEART Score: History: Moderately Suspicious (1), ECG: Normal (0), Age: > 45 and < 65 years (1), Risk Factors: 1 or 2 risk factors (1), [Hypertension]. The patient was given aspirin in the Emergency Department. Data interpreted: cardiac monitor: rate is 84 beats/min, rhythm is normal sinus rhythm, regular, Pulse oximetry: on room air is 100 %. Test interpretation: by ED physician or midlevel provider: ECG, plain radiologic studies. 08:42 HARLEY Risk Score: 1 - ASA use in past 7 days, TOTAL SCORE = 1. Counseling: I had a [facility] detailed discussion with the patient and/or guardian regarding: the historical points, exam findings, and any diagnostic results supporting the discharge/admit diagnosis, the presence of at least one elevated blood pressure reading (>120/80) during this emergency department visit, lab results, radiology results, the need for further work-up and treatment in the hospital. ED course: pt presented with cp , pressure , pain radiating to left arm, dizzy, hx htn, dw dr acevedo, will obs and consult dr gonsales, dr acevedo agrees. 04/04 07:55 Order name: Basic Metabolic Panel; Complete Time: 08:57 [facility] 04/04 07:55 Order name: CBC with Diff [facility] 04/04 07:55 Order name: LFT's; Complete Time: 08:57 [facility] 04/04 07:55 Order name: Magnesium; Complete Time: 08:57 [facility] 04/04 07:55 Order name: NT PRO-BNP; Complete Time: 08:57 [facility] 04/04 07:55 Order name: PT-INR; Complete Time: 08:40 [facility] 04/04 07:55 Order name: Troponin (emerg Dept Use Only); Complete Time: 08:57 [facility] 04/04 09:19 Order name: Manual Differential [facility] 04/04 09:38 Order name: Lipid Profile [facility] 04/04 09:38 Order name: T4 Free [facility] 04/04 09:38 Order name: Thyroid Stimulating Hormone [facility] 04/04 09:38 Order name: Basic Metabolic Panel [facility] 04/04 09:38 Order name: Basic Metabolic Panel [facility] 04/04 09:38 Order name: CBC with Automated Diff [facility] 04/04 07:55 Order name: XRAY Chest (1 view) [facility] 04/04 07:55 Order name: EKG; Complete Time: 07:55 [facility] 04/04 08:06 Order name: CT Head Brain wo Cont; Complete Time: 08:57 [facility] 04/04 09:38 Order name: CONS Physician Consult [facility] 04/04 09:38 Order name: CBC with Automated Diff [facility] 04/04 09:38 Order name: Magnesium [facility] 04/04 09:38 Order name: Magnesium [facility] 04/04 09:38 Order name: Troponin I [facility] 04/04 09:38 Order name: Troponin I [facility] 04/04 09:38 Order name: Troponin I [facility] 04/04 09:44 Order name: Echo with Doppler [facility] 04/04 07:55 Order name: Cardiac monitoring; Complete Time: 08:00 [facility] 04/04 07:55 Order name: EKG - Nurse/Tech; Complete Time: 08:42 [facility] 04/04 07:55 Order name: IV Saline Lock; Complete Time: 08:16 [facility] 04/04 07:55 Order name: Labs collected and sent; Complete Time: 08:16 [facility] 04/04 07:55 Order name: O2 Per Protocol; Complete Time: 08:00 [facility] 04/04 07:55 Order name: O2 Sat Monitoring; Complete Time: 08:00 [facility] 04/04 08:41 Order name: Bilateral blood pressure; Complete Time: 08:53 [facility] 04/04 09:38 Order name: NPO EDMS EC:33 Rate is 70 beats/min. Rhythm is regular. QRS Hugo is Normal. [place] interval is normal. QRS alla interval is normal. QT interval is normal. No Q waves. T waves are Normal. ST Segment is depressed in leads II, aVF, V3, <1mm. Clinical impression: NSR w/ Non-specific ST/T Changes. Administered Medications: 08:10 Drug: NS 0.9% 1000 ml Route: IV; Rate: 125 ml/hr; Site: right antecubital; bp 11:03 Follow up: Response: No adverse reaction; IV Status: Infusion continued upon admission sv 08:10 Drug: Aspirin 81 mg Route: PO; bp 08:53 Follow up: Response: No adverse reaction bp 08:10 Drug: Lopressor (metoprolol TARTRATE) 50 mg Route: PO; bp 08:53 Follow up: Response: No adverse reaction bp 08:50 Drug: Lovenox 100 mg Route: Sub-Q; Site: right lower abdomen; bp 09:26 Follow up: Response: No adverse reaction bp Disposition: 04/04/20 08:41 Hospitalization ordered by Juan A Acevedo for Observation. Preliminary diagnosis are Chest pain, unspecified, Essential (primary) hypertension. - Bed requested for Telemetry/MedSurg (observation). - Status is Observation. dh3 - Condition is Stable. - Problem is new. - Symptoms have improved. Signatures: Dispatcher [employer] EDNJ Sandra Shipley RN RN dw Anderson, Corey, MD MD cha Martinez, Eric 1 Melly Rivas 3 Misael Mack, RN RN bp Elizabeth Mckeon RN sv Corrections: (The following items were deleted from the chart) 09:44 09:38 Echo with Doppler ordered. EDMS EDMS 11:03 08:41 Hospitalization Ordered by [facility] for Observation. Preliminary em1 diagnosis is Chest pain, unspecified; Essential (primary) hypertension. Bed requested for Telemetry/MedSurg (observation). Status is Observation. Condition is Stable. Problem is new. Symptoms have improved. alla 11:04 11:03 04/04/2020 08:41 Hospitalization Ordered by [facility] for Observation. em1 Preliminary diagnosis is Chest pain, unspecified; Essential (primary) hypertension. Bed requested for RUST ER HOLD. Status is Observation. Condition is Stable. Problem is new. Symptoms have improved. em1 13:55 11:04 04/04/2020 08:41 Hospitalization Ordered by [facility] for Observation. dw Preliminary diagnosis is Chest pain, unspecified; Essential (primary) hypertension. Bed requested for RUST ER HOLD. Status is Observation. Condition is Stable. Problem is new. Symptoms have improved. em1 14:37 13:55 04/04/2020 08:41 Hospitalization Ordered by [facility] for Observation. 3 Preliminary diagnosis is Chest pain, unspecified; Essential (primary) hypertension. Bed requested for Telemetry/MedSurg (observation). Status is Observation. Condition is Stable. Problem is new. Symptoms have improved. dw
[2020-04-04 08:45] LABS: NT PRO-BNP < 5 pg/mL (<125)
--- NOTE | 2020-04-04 08:46 | RAD REPORT ---
EXAM DESCRIPTION: CT - Head Brain Wo Cont - 04/04/2020 8:35 am CLINICAL HISTORY: HEADACHE Headache, drowsiness COMPARISON: Head Brain Wo Cont dated 04/28/2017; Facial Bones W/ Mpr dated 01/20/2017 TECHNIQUE: All CT scans are performed using dose optimization technique as appropriate and may inclu de automated exposure control or mA/KV adjustment according to patient size. FINDINGS: No intracranial hemorrhage, hydrocephalus or extra-axial fluid collection.No areas of brai n edema or evidence of midline shift. The paranasal sinuses and mastoids are clear. The calvarium is intact. IMPRESSION: No acute intracranial abnormality.
[2020-04-04] MEDS ORDERED: ENOXAPARIN 100 MG/ML SYR SQ ONE (08:53)
[2020-04-04 09:19] LABS: Blood Morphology Comment NOT SEEN (NOT SEEN); Platelet Estimate ADEQ
--- NOTE | 2020-04-04 09:21 | RAD REPORT ---
EXAM DESCRIPTION: RAD - Chest Single View - 04/04/2020 9:15 am CLINICAL HISTORY: CHEST PAIN Chest pain. COMPARISON: Chest Single View dated 01/20/2017 FINDINGS: Portable technique limits examination quality. The lungs are grossly clear. The heart is normal in size. No displaced fractures. IMPRESSION: No acute intrathoracic process suspected.
[2020-04-04] MEDS ORDERED: ACETAMINOPHEN 500 MG TAB PO PRN (09:31)
[2020-04-04] MEDS ORDERED: ONDANSETRON 4 MG/2 ML VIAL IV PRN (09:31)
--- NOTE | 2020-04-04 09:42 | P.HP ---
Certification for Inpatient Patient admitted to: Observation With expected LOS: <2 Midnights Patient will require the following post-hospital care: None Practitioner: I am a practitioner with admitting privileges, knowledge of patient current condition, hospital course, and medical plan of care. Services: Services provided to patient in accordance with Admission requirements found in Title 42 Section 412.3 of the Code of Federal Regulations <Juan Diego Villalobos - Last Filed: 04/04/20 09:42> Patient admitted to: Observation With expected LOS: <2 Midnights <Juan A Kim - Last Filed: 04/04/20 17:33> Patient History Date of Service: 04/04/20 Primary Care Provider: Dr. Houston Reason for admission: Chest pain History of Present Illness: 54-year-old male with history of hypertension and hypothyroidism presented to the emergency department with a chief complaint of palpitations that will come up from his sleep and a dull/tight pain in the left anterior chest that radiated to his left forearm. Patient was evaluated in the emergency department by the ED provider and was found to have some nonspecific T-wave changes. ED provider wishes to admit patient for further evaluation management of chest pain. When I saw the patient in the emergency department he was calm, cooperative. Denies chest pain at this time. Vital signs within normal limits. The patient report that he had a stress test somewhere between 5 and 10 years ago that was normal and also wore a Holter monitor about 4 years ago without any findings. Will admit patient for further evaluation management of chest pain. - Past Medical/Surgical History Has patient received pneumonia vaccine in the past: No Diabetic: No -: HTN -: hypothyroidism -: vesictomy -: left knee sx -: left shoulder sx Psychosocial/ Personal History: Patient lives at home with family. - Family History Mother -: Hypertension - Social History Smoking Status: Never smoker Alcohol use: Yes CD- Drugs: No Caffeine use: Yes Place of Residence: Home <Juan Diego Villalobos - Last Filed: 04/04/20 09:42> Date of Service: 04/04/20 History of Present Illness: Patient seen and examined with nurse practitioner. Patient further reports that he has seen Urology. Over the past month he has been taking meloxicam. - Past Medical/Surgical History -: Hypothyroidism -: BPH - Family History Family History: Reviewed- Non-Contributory <Juan A Kim - Last Filed: 04/04/20 17:33> Allergies No Known Allergies Allergy (Unverified 08/18/13 03:34) Home Medications: Levothyroxine Sodium [Synthroid] 150 mcg PO DAILY 08/18/13 Amlodipine Besylate/Benazepril [Lotrel 5-20 mg Capsule] 1 tab PO DAILY 04/04/20 Meloxicam 1 tab PO DAILY 04/04/20 Pantoprazole [Protonix Tab*] 1 tab PO DAILY 04/04/20 Sulfamethoxazole/Trimethoprim [Bactrim Ds Tablet] 1 tab PO Q12H 04/04/20 hydroCHLOROthiazide [Hydrodiuril*] 1 tab PO DAILY 04/04/20 Review of Systems General: Unremarkable Eyes: Unremarkable ENT: Unremarkable Respiratory: Unremarkable Cardiovascular: As per HPI Gastrointestinal: Unremarkable Genitourinary: Unremarkable Musculoskeletal: Unremarkable Neurological: Other (Headache) Lymphatics: Unremarkable <Juan Diego Villalobos - Last Filed: 04/04/20 09:42> Physical Examination - Physical Exam General: Alert, In no apparent distress, Oriented x3 HEENT: Atraumatic, Normocephalic Neck: Supple Respiratory: Clear to auscultation bilaterally, Normal air movement Cardiovascular: No edema Capillary refill: <2 Seconds Gastrointestinal: Normal bowel sounds Musculoskeletal: No clubbing Neurological: Normal gait, Normal speech - Studies Laboratory Data (last 24 hrs) 04/04/20 08:10: PT 11.7, INR 0.99 04/04/20 08:10: WBC 4.4, Hgb 15.4, Hct 45.6, Plt Count 250 04/04/20 08:10: Sodium 138, Potassium 3.5, BUN 12, Creatinine 1.57 H, Glucose 113 H, Magnesium 2.1, Total Bilirubin 0.3, AST 30, ALT 32, Alkaline Phosphatase 67 <Juan Diego Villalobos - Last Filed: 04/04/20 09:42> - Physical Exam Respiratory: Clear to auscultation bilaterally, Normal air movement Cardiovascular: Normal pulses, Regular rate/rhythm Gastrointestinal: No ascites, No tenderness, No masses, No rebound, No guarding Integumentary: No tenderness/swelling Neurological: Normal speech, Normal strength at 5/5 x4 extr, Normal tone, Normal affect - Studies Laboratory Data (last 24 hrs) 04/04/20 08:10: PT 11.7, INR 0.99 04/04/20 08:10: WBC 4.4, Hgb 15.4, Hct 45.6, Plt Count 250 04/04/20 08:10: Sodium 138, Potassium 3.5, BUN 12, Creatinine 1.57 H, Glucose 113 H, Magnesium 2.1, Total Bilirubin 0.3, AST 30, ALT 32, Alkaline Phosphatase 67 <Juan A Kim - Last Filed: 04/04/20 17:33> Assessment and Plan - Plan Assessment Chest pain with nonspecific T-wave changes on ECG Hypertension Hypothyroidism Plan Chest pain with nonspecific T-wave changes on ECG- patient will be admitted under observation for further evaluation management of chest pain. Patient given Lovenox and aspirin in the emergency department. Cardiology has been consulted on this case. Patient will receive exercise stress test and echocardiogram which have been ordered. Will obtain troponin every 6 hr x2. Will also evaluate thyroid function. At this time patient is pain free, anticipate that his cardiac evaluation will be normal. Anticipate patient can be discharged the next 12 to 24 hr. DVT prophylaxis with Lovenox. Patient will be monitored on telemetry throughout this hospitalization. Will await further input from cardiology in the management of this patient. Hypertension- will obtain and continue patient's home medications. Will continue to monitor patient's blood pressure throughout this hospitalization. Hypothyroidism-will obtain and continue patient's home medications. Discharge Plan: Home Plan to discharge in: 24 Hours - Advance Directives Does patient have a Living Will: No Does patient have a Durable POA for Healthcare: No - Code Status/Comfort Care Code Status Assessed: Yes (Patient is full code) Time Spent Managing Pts Care (In Minutes): 55 <Juan Diego Villalobos - Last Filed: 04/04/20 09:42> - Plan Patient seen and examined with nurse practitioner. Case discussed at length with nurse practitioner. Agree with plan of care. Also discuss with cardiology. Patient will remain in the hospital. Continue cardiac enzymes and monitor telemetry. Will keep the patient NPO after midnight. Await further recommendations from cardiology. Anticipate patient will likely require either cardiac stress test or heart catheterization. Await recommendations by Cardiology. Echocardiogram to be performed. Continue hypertensive medications. Continue hypothyroidism medication. Patient seen by urology for BPH. Urology has been giving patient meloxicam. I will recommend to discontinue this. Patient may require 2nd opinion. I will turn the service over to the hospitalist team tomorrow. I will go over the plan of care with him. <Juan A Kim - Last Filed: 04/04/20 17:33>
[2020-04-04 11:07] VITALS: BMI 35.4
[2020-04-04 11:14] VITALS: O2SAT 100
[2020-04-04 13:01] LABS: Thyroid Stimulating Hormone 3.34 uIU/mL (0.360-3.740)
[2020-04-04] MEDS ORDERED: POTASSIUM CL SA 10 MEQ TAB PO ONE (14:48)
--- NOTE | 2020-04-04 18:45 | EKG ---
Test Date: 2020-04-04 Test Time: 08:30:07 Proposal Rep: REINA MEASUREMENT RESULTS: Intervals: Rate: 70 TX: 186 QRSD: 98 QT: 390 QTc: 421 [place]: P: 42 TX: 186 QRS: 32 T: 31 INTERPRETIVE STATEMENTS: Normal sinus rhythm Nonspecific T wave abnormality Abnormal ECG Compared to ECG 04/28/2017 09:24:41 T-wave abnormality now present Sinus bradycardia no longer present Electronically Signed On 04-04-20 18:43:58 CDT by Baldomero Wright
[2020-04-04 19:18] VITALS: BP 120/81; TEMP 96
--- NOTE | 2020-04-04 23:27 | CON ---
History Of Present Illness: Mr. Murillo is a 54-year-old black male. He is a police lieutenant. He came into the emergency room with many symptoms, but he did have some substernal chest pressure that radiated to both shoulders. He got nauseated, sweaty, lightheaded, felt like he was going to faint. He denied any PND, orthopnea, pedal edema, palpitations, or syncope. His symptoms have being interm ittent for the last 2 weeks, sometimes with exertional, sometimes he wakes up with it. We attempted to do a stress test on Mr. Murillo, but he could only walk a few minutes and when his heart rate go t to about 120, he got short of breath, chest tightness, and he had to stop. Echocardiogram was norm al. His creatinine show was 1.57. The rest of the blood work was fairly unremarkable. He had mahamed l thyroid level. Past Medical History: Basically positive for ADD with ADHD, anxiety, hypertension, hypothyroidism. Allergies: NONE. Medications: At home include, Lotrel 520 once a day and hydrochlorothiazide once a day. Family History: Positive for heart disease. Social History: Negative. Review of Systems: Negative. Physical Examination: Vital Signs: Stable, he was afebrile. HEENT: Negative. Neck: Supple, no bruit. Chest: Clear to auscultation and percussion. Cardiac: Revealed a regular rhythm and rate with no murmurs, gallops, or rubs. Abdomen: Benign. Extremities: Revealed no clubbing, cyanosis, or edema. Diagnostic Data: As stated earlier. Impression And Plan: Mr. Murillo is 54. He has hypertension. He is a male, he is over 50. He willis s a family history of heart disease. He could not finish his stress test because of chest tightness and shortness of breath. His symptoms are suggestive of unstable angina and I recommended a left hea rt catheterization with selective coronary arteriogram to define his coronary anatomy as I believe th is is the best approach for him. He agreed to proceed. He understands the risk and the benefits of the procedure. The case was discussed with him and with Dr. Kim. The patient elects to have the procedure done as an outpatient. He will go home today and I will make arrangements for that to be d one sometime later on this week. NB/MODL Voice ID: [id number] Report ID: [id number]
[2020-04-05] MEDS ORDERED: LEVOTHYROXINE SOD 0.075 MG TAB PO SCH (06:30)
--- NOTE | 2020-04-05 08:29 | ECHO ---
HEIGHT: 6 ft 1 in WEIGHT: 269 lb 0 oz DATE OF STUDY: 04/04/[address]: JuanD iego Villalobos NP 2-DIMENSIONAL: YES M.MODE: YES DOPPLER: YES COLOR FLOW: YES TDS: NO PORTABLE: NO DEFINITY: NO BUBBLE STUDY: NO DIAGNOSIS: CHEST PAIN CARDIAC HISTORY: CATHERIZATION: NO SURGERY: NO PROSTHETIC VALVE: NO PACEMAKER: NO MEASUREMENTS (cm) DIASTOLIC (NORMALS) SYSTOLIC (NORMALS) IVSd 1.0 (0.6-1.2) LA Diam 3.0 (1.9-4.0) LVEF 54% LVIDd 4.8 (3.5-5.7) LVIDs 3.5 (2.0-3.5) %FS 28% LVPWd 1.1 (0.6-1.2) Ao Diam 2.6 (2.0-3.7) 2 DIMENSIONAL ASSESSMENT: RIGHT ATRIUM: NORMAL LEFT ATRIUM: NORMAL RIGHT VENTRICLE: NORMAL LEFT VENTRICLE: NORMAL TRICUSPID VALVE: NORMAL MITRAL VALVE: NORMAL PULMONIC VALVE: NORMAL AORTIC VALVE: NORMAL PERICARDIAL EFFUSION: NONE AORTIC ROOT: NORMAL LEFT VENTRICULAR WALL MOTION: NORMAL. DOPPLER/COLOR FLOW: NORMAL. COMMENTS: NORMAL 2D ECHO WITH DOPPLER. NO WALL MOTION ABNORMALITY. NO EFFUSION. TECHNOLOGIST: MARIANNA FALLON
--- NOTE | 2020-04-05 08:34 | TREADMILL ---
70% H.R.: 117 85% H.R.: 141 90% H.R.: 100% H.R.: DX: CHEST PAIN Date of Study: 04/04/2020 Ht: 6' 1 " Wt: 269 lb 0 oz Consulting Physician: ANGELICA MEDICATIONS: LOTREL, HCT, LEVOTHYROXINE, PROTONIX HISTORY: 54 YEAR OLD MALE WITH HISTORY OF HYPERTENSION, ANXIETY, HYPOTHYROIDISIM, ADHD, ADMITTED FOR CHEST PAIN PHYSICIAL EXAMINATION: RESTING B.P.: 145/109 RESTING H.R.: 61 RESTING EKG: NORMAL PROTOCOL: LARISSA ROUTINE EXERCISE TIME: 10:35 MAXIMUM HEART RATE: 125 78 % OF PREDICTED B.P. AT PEAK STRESS: 161/96 H.R. AT 1 MINUTE POST EXERCISE: 101 IMPRESSION: STOPPED FOR SHORTNESS OF BREATH AND FATIGUE. NO SUPRA VENTRICULAR TACHYCARDIA, NO VENTRICULAR TACHYCARDIA, OCCASIONAL PREMATURE VENTRICULAR COMPLEX NOTED. PATIENT DENIED CHEST PAIN. TOLERATED WELL. RESPIRATORY EVEN AND NON LABORED. NEGEATIVE SUBMAXIMAL EXERCISE TOLERANCE TEST.
[2020-04-05] MEDS ORDERED: BENAZEPRIL 20 MG TAB PO SCH (09:00)
[2020-04-05] MEDS ORDERED: ENOXAPARIN 40 MG/0.4 ML SQ SCH (09:00)
[2020-04-05] MEDS ORDERED: HOME MED 1 EA UNK (Levothyroxine Sodium [Synthroid] 150 MCG) PO SCH (09:00)
[2020-04-05] MEDS ORDERED: BENAZEPRIL PO SCH (09:00)
[2020-04-05] MEDS ORDERED: AMLODIPINE 5 MG TAB PO SCH (09:00)
[2020-04-05] MEDS ORDERED: hydroCHLOROthiazide 25 MG TAB PO SCH (09:00)
[2020-04-05] MEDS ORDERED: AMLODIPINE BESYLATE PO SCH (09:00)
[2020-04-05] MEDS ORDERED: PANTOPRAZOLE 40MG TABLET PO SCH (09:00)
== END 2020-04-04 19:32 | disposition home or self-care (01) ==
LOC: ER 07:47 → ERHOLD 09:31 → 4TH 14:04
PROVIDERS: ADMIT Family Medicine; ATTEND Family Medicine
DX: R07.9 Chest pain, unspecified (principal); I10 Essential (primary) hypertension; E03.9 Hypothyroidism, unspecified; F41.9 Anxiety disorder, unspecified; F90.9 Attention-deficit hyperactivity disorder, unspecified type
CPT/HCPCS: 96361; 93017; 93005; 93306; 85025; 80048; 36415; 83735; 85610; 80076; 84443; 84484 ×3; 84439; 83880; 70450; 71045; 96360; 96372; 99285; J1650; J7030; G0378 ×2